=== PATIENT | female | born 1935 | race Caucasian/White ===

== ENCOUNTER 2017-09-02 16:53 | Observation (INO) ==
--- NOTE | 2017-09-02 16:56 | Emergency Department Note ---
Disposition Clinical Impression: UTI (urinary tract infection), Sepsis, Fall, Dizziness Disposition: Admitted As Inpatient Condition: Fair General Adult HPI - General Chief complaint: ED Fall Stated complaint: fall Time Seen by Provider: 09/02/17 16:55 - Related Data Home Medications Medication Instructions Recorded Confirmed Aspirin 81 mg PO DAILY 03/26/16 03/26/16 Labetalol HCl 200 mg PO BID 03/26/16 03/26/16 Lisinopril [Zestril] 10 mg PO BID 03/26/16 03/26/16 Oxybutynin [Ditropan] 5 mg PO DAILY 03/26/16 03/26/16 Ranitidine HCl [Heartburn Relief] 150 mg PO BIDWM 03/26/16 03/26/16 Previous Rx's Medication Instructions Recorded Acetaminophen [Tylenol] 650 mg PO Q6HR PRN #0 tablet 03/30/16 Ciprofloxacin [Cipro] 500 mg PO BID #3 tablet 03/30/16 OxyCODONE Immed Rel [Roxicodone 5 5 - 10 mg PO Q6HR PRN #40 tablet 03/30/16 MG] Temazepam [Restoril] 15 mg PO HS PRN #15 capsule 03/30/16 Allergies Allergy/AdvReac Type Severity Reaction Status Date / Time No Known Allergies Allergy Verified 03/26/16 17:42 Past Medical History - Past Medical History Medical history: Reports: CVA, diabetes, GERD, hyperlipidemia, hypertension Surgical history: Reports: appendectomy, cholecystectomy, hysterectomy Psychiatric history: Reports: no psych history - Social History Smoking Status: Former smoker Smokeless Tobacco Status: No Alcohol use: Reports: rarely Drug use: Reports: none Course Vital Signs Temperature 98.5 F 09/02/17 16:54 Pulse Rate 115 09/02/17 16:54 Respiratory Rate 18 09/02/17 16:54 Blood Pressure 172/108 09/02/17 16:54 O2 Sat by Pulse Oximetry 93 09/02/17 16:54 Temperature 98.5 F 09/02/17 16:54 Pulse Rate 101 09/02/17 21:28 Respiratory Rate 15 09/02/17 21:28 Blood Pressure 156/80 09/02/17 21:28 O2 Sat by Pulse Oximetry 96 09/02/17 21:28 Oxygen Delivery Oxygen Delivery Room Air Medical Decision Making - Lab Data Result diagrams: 09/02/17 18:01 10/14/17 18:57 Lab Results 09/02/17 09/02/17 09/02/17 Range/Units 18:01 18:01 18:01 WBC 19.0 H (4.3-11.1) K/mcL RBC 5.02 H (3.82-4.97) M/mcL Hgb 14.9 (11.5-15.4) g/dL Hct 45.2 H (35.3-44.9) % MCV 90.0 (83.0-100.0) fL MCH 29.7 (28.0-33.3) pg MCHC 33.0 (31.6-35.5) g/dL RDW 12.8 (11.5-14.5) % Plt Count 285 (140-400) K/mcL MPV 9.9 (9.4-12.4) fL Immature Gran % 0.4 (0-4) % Seg Neutrophils % 85.4 % Lymphocytes % 8.9 % Monocytes % 4.6 % Eosinophils % 0.3 % Basophils % 0.4 % Neutrophils # 16.3 H (1.6-8.9) K/mcL Lymphocytes # 1.7 (0.6-4.6) K/mcL Monocytes # 0.9 (0.0-1.3) K/mcL Eosinophils # 0.1 (0.0-0.6) K/mcL Basophils # 0.1 (0.0-0.2) K/mcL PT 11.6 (9.4-12.1) Seconds INR 1.1 Sodium (136-145) mEq/L Potassium (3.5-4.5) mEq/L Chloride (98-109) mEq/L Carbon Dioxide (19-29) mEq/L BUN (7-20) mg/dL Creatinine (0.57-1.11) mg/dL Est GFR ( Amer) (> 60) Est GFR (Non-Af Amer) (> 60) BUN/Creatinine Ratio (6-26) Glucose (70-99) mg/dL Calculated Osmolality (280-300) Calcium (8.6-10.8) mg/dL Total Bilirubin (0.2-1.2) mg/dL AST (5-34) Units/L ALT (0-55) Units/L Alkaline Phosphatase (38-126) Units/L Creatine Kinase (29-168) Units/L Troponin I (0-0.03) ng/mL Serum Total Protein (6.0-8.3) g/dL Albumin (3.5-5.0) g/dL Globulin (2.4-3.5) g/dL Albumin/Globulin Ratio (1.1-2.2) Urine Color (Yellow) Urine Clarity (Clear) Urine pH (5.0-8.0) pH Units Ur Specific [place] (1.010-1.025) Urine Protein (Neg-Trace) mg/dL Urine Glucose (UA) (Normal) mg/dL Urine Ketones (Negative) mg/dL Urine Blood (Negative) Urine Nitrite (Negative) Urine Bilirubin (Negative) Urine Urobilinogen (Normal) mg/dL Ur Leukocyte Esterase (Negative) Urine Microscopic RBC (0-3) per hpf Urine Microscopic WBC (0-3) per hpf Ur Squamous Epith Cells (None-Few) per lpf Urine Bacteria (None-Few) per hpf Hyaline Casts (None-Few) per lpf Ur Culture Indicated? (NO) Specimen Rejected Hemolyzed 09/02/17 09/02/17 09/02/17 Range/Units 18:57 18:57 19:30 WBC (4.3-11.1) K/mcL RBC (3.82-4.97) M/mcL Hgb (11.5-15.4) g/dL Hct (35.3-44.9) % MCV (83.0-100.0) fL MCH (28.0-33.3) pg MCHC (31.6-35.5) g/dL RDW (11.5-14.5) % Plt Count (140-400) K/mcL MPV (9.4-12.4) fL Immature Gran % (0-4) % Seg Neutrophils % % Lymphocytes % % Monocytes % % Eosinophils % % Basophils % % Neutrophils # (1.6-8.9) K/mcL Lymphocytes # (0.6-4.6) K/mcL Monocytes # (0.0-1.3) K/mcL Eosinophils # (0.0-0.6) K/mcL Basophils # (0.0-0.2) K/mcL PT (9.4-12.1) Seconds INR Sodium 142 (136-145) mEq/L Potassium 3.4 L (3.5-4.5) mEq/L Chloride 107 (98-109) mEq/L Carbon Dioxide 26 (19-29) mEq/L BUN 11 (7-20) mg/dL Creatinine 0.84 (0.57-1.11) mg/dL Est GFR ( Amer) > 60 (> 60) Est GFR (Non-Af Amer) > 60 (> 60) BUN/Creatinine Ratio 13 (6-26) Glucose 205 H (70-99) mg/dL Calculated Osmolality 299 (280-300) Calcium 8.7 (8.6-10.8) mg/dL Total Bilirubin 0.3 (0.2-1.2) mg/dL AST 20 (5-34) Units/L ALT 12 (0-55) Units/L Alkaline Phosphatase 86 (38-126) Units/L Creatine Kinase 288 H (29-168) Units/L Troponin I 0.01 (0-0.03) ng/mL Serum Total Protein 6.4 (6.0-8.3) g/dL Albumin 3.2 L (3.5-5.0) g/dL Globulin 3.2 (2.4-3.5) g/dL Albumin/Globulin Ratio 1.0 L (1.1-2.2) Urine Color Yellow (Yellow) Urine Clarity Cloudy A (Clear) Urine pH 6.0 (5.0-8.0) pH Units Ur Specific [place] 1.018 (1.010-1.025) Urine Protein Trace (Neg-Trace) mg/dL Urine Glucose (UA) Normal (Normal) mg/dL Urine Ketones 15 H (Negative) mg/dL Urine Blood Trace H (Negative) Urine Nitrite Positive A (Negative) Urine Bilirubin Negative (Negative) Urine Urobilinogen Normal (Normal) mg/dL Ur Leukocyte Esterase Negative (Negative) Urine Microscopic RBC 0-3 (0-3) per hpf Urine Microscopic WBC 5-15 H (0-3) per hpf Ur Squamous Epith Cells Many H (None-Few) per lpf Urine Bacteria Many H (None-Few) per hpf Hyaline Casts None Seen (None-Few) per lpf Ur Culture Indicated? YES A (NO) Specimen Rejected Attestation Statement - Attestation Attestation: I examined this patient and my medical decision-making was reviewed with the Resident Physician. I agree with the documented findings, disposition and treatment plan as described except to the extent set forth below. [id number] time provided Patient presents by EMS from home complaining of intermittent dizziness that is gradually worsening. This is causing her to be near syncopal and fall. She is alert and lucid at the time of presentation. Patient seen in conjunction with the resident physician Dr. Virgen 19:51: She has a leukocytosis with a neutrophilia. She was initially tachycardic. She has a urinary tract infection. She meets criteria for sepsis. We will add on cultures and a lactic acid. Empiric antibiotics initiated. Patient is normotensive
[2017-09-02] MEDS ORDERED: 0.9 % Sodium Chloride 1,000 ML IVC ONE (17:01)
--- NOTE | 2017-09-02 17:29 | Emergency Department Note ---
Disposition Clinical Impression: Dizziness UTI (urinary tract infection) Qualifiers: Urinary tract infection type: acute cystitis Hematuria presence: with hematuria Qualified Code(s): N30.01 - Acute cystitis with hematuria Sepsis Qualifiers: Sepsis type: sepsis due to unspecified organism Qualified Code(s): A41.9 - Sepsis, unspecified organism Fall Qualifiers: Encounter type: initial encounter Qualified Code(s): W19.XXXA - Unspecified fall, initial encounter Disposition: Admitted As Inpatient Condition: Fair Time of Disposition: 20:00 General Adult HPI - General Chief complaint: ED Fall Stated complaint: fall Time Seen by Provider: 09/02/17 16:55 Source: patient, EMS Limitations: no limitations Nursing Notes Reviewed: Yes Vital Signs Reviewed: Yes - History of Present Illness HPI Narrative: 81-year-old female who presents to the emergency department via EMS after being found down at home for over 15 hours. Patient states that she has been having this chronic dizziness. She states that she fell down at home on her right elbow. She denies hitting her head. Patient does have dementia. Patient denies any loss of consciousness. Pain Scale: 5 - Related Data Home Medications Medication Instructions Recorded Confirmed Aspirin 81 mg PO DAILY 03/26/16 03/26/16 Labetalol HCl 200 mg PO BID 03/26/16 03/26/16 Lisinopril [Zestril] 10 mg PO BID 03/26/16 03/26/16 Oxybutynin [Ditropan] 5 mg PO DAILY 03/26/16 03/26/16 Ranitidine HCl [Heartburn Relief] 150 mg PO BIDWM 03/26/16 03/26/16 Previous Rx's Medication Instructions Recorded Acetaminophen [Tylenol] 650 mg PO Q6HR PRN #0 tablet 03/30/16 Ciprofloxacin [Cipro] 500 mg PO BID #3 tablet 03/30/16 OxyCODONE Immed Rel [Roxicodone 5 5 - 10 mg PO Q6HR PRN #40 tablet 03/30/16 MG] Temazepam [Restoril] 15 mg PO HS PRN #15 capsule 03/30/16 Allergies Allergy/AdvReac Type Severity Reaction Status Date / Time No Known Allergies Allergy Verified 03/26/16 17:42 All systems ED: reviewed and negative except as stated. Review of Systems: As Per HPI Constitutional: Denies: fever, chills Eyes: Denies: eye pain, eye discharge ENT ED: Denies: ear pain, throat pain Cardiovascular: Denies: chest pain, palpitations Respiratory: Denies: cough, dyspnea Gastrointestinal: Denies: abdominal pain, nausea, vomiting Genitourinary: Denies: urgency, dysuria, frequency, hematuria Musculoskeletal: Reports: other (Right elbow pain). Denies: back pain, neck pain Integumentary: Denies: rash Neurological: Denies: headache, weakness, numbness Hematological/Lymphatic: Denies: easy bleeding Past Medical History - Past Medical History Medical history: Reports: CVA, diabetes, GERD, hyperlipidemia, hypertension Surgical history: Reports: appendectomy, cholecystectomy, hysterectomy Psychiatric history: Reports: no psych history - Social History Smoking Status: Former smoker Smokeless Tobacco Status: No Alcohol use: Reports: rarely Drug use: Reports: none Physical Exam - General Limitations: no limitations General appearance: alert, in no apparent distress, other (Elderly female who appears to be slightly demented but in no acute distress.) - Head Head exam: atraumatic - Eye Eye exam: Present: other (Left eye appears abnormal and this is nothing new) - ENT ENT exam: normal oropharynx, mucous membranes moist - Neck Neck exam: Present: trachea midline. Absent: tenderness, meningismus - Chest Chest inspection: Present: normal inspection, symmetric chest wall rise - Respiratory Respiratory exam: Present: normal lung sounds bilaterally. Absent: respiratory distress - Cardiovascular Cardiovascular exam: Present: normal rhythm, tachycardia, normal heart sounds - Abdominal Exam Abdominal exam: Present: soft, Non-Tender. Absent: distention, guarding, rebound, rigidity - Extremities Exam Extremities exam: Present: normal capillary refill. Absent: calf tenderness - Back Exam Back exam: Present: full ROM. Absent: tenderness - Neurological Exam Neurological exam: Present: alert - Psychiatric Psychiatric exam: Present: normal affect, normal mood - Skin Skin exam: Present: warm, dry, intact, normal color Course Course Narrative: 81-year-old female presents to the emergency department after being down on the ground for 15 hours after having a fall. Patient states that she is dizzy. Patient states that she has been bile in this dizziness for quite some time. Patient was brought in via EMS. Patient states that she is no longer able to ambulate. Patient denies any other symptoms besides pain in her right elbow. We will obtain a CT scan of her head and neck as this patient has dementia and is not a reliable source and reporting neurologic symptoms with her dizziness. We will obtain an x-ray of her right elbow as well as in x-ray AP of her pelvis. Obtain urinalysis, EKG, BMP, troponin, creatinine kinase. - Reevaluation(s) Reevaluation #1: Patient was tachycardic upon arrival to the emergency department. She has a leukocytosis of 19.0. She meets SIRS criteria. She has a nitrite-positive urine with hematuria. This patient meets criteria for sepsis. We will obtain blood cultures and lactic acid. I will give her a gram of Rocephin for urinary tract infection. The patient's CT of the head and neck are negative. Her creatinine kinase is only mildly elevated. We will admit this patient with a urinary tract infection with sepsis. We will provide this patient with a gram of Rocephin to treat her urinary tract infection. Her urine is pending culture. Chest X-Ray 09/02/17 17:01 IMPRESSION: No acute abnormality detected. D/ / Flaco Clement MD / Flaco Clement MD Interpreting Provider: Flaco Clement MD Elbow X-Ray 09/02/17 17:03 IMPRESSION: No acute abnormality detected. D/ / Flaco Clement MD / Flaco Clement MD Interpreting Provider: Flaco Clement MD Cervical Spine CT 09/02/17 17:10 IMPRESSION: No acute abnormality of the cervical spine. D/ / Nicholas Ocasio MD / Nicholas Ocasio MD Interpreting Provider: Nicholas Ocasio MD Head CT 09/02/17 17:10 IMPRESSION: Stable exam without acute hemorrhage Extensive small-vessel ischemic change bilaterally with multiple old infarcts. D/ / Rome Albarran / Rome Albarran Interpreting Provider: Rome Albarran Pelvis X-Ray 09/02/17 17:12 IMPRESSION: No acute abnormality detected. D/ / Flaco Clement MD / Flaco Clement MD Interpreting Provider: Flaco Clement MD Time: 19:57 Vital Signs Temperature 98.5 F 09/02/17 16:54 Pulse Rate 115 09/02/17 16:54 Respiratory Rate 18 09/02/17 16:54 Blood Pressure 172/108 09/02/17 16:54 O2 Sat by Pulse Oximetry 93 09/02/17 16:54 Temperature 98.5 F 09/02/17 16:54 Pulse Rate 108 09/02/17 20:08 Respiratory Rate 20 09/02/17 20:08 Blood Pressure 168/95 09/02/17 20:08 O2 Sat by Pulse Oximetry 93 09/02/17 20:08 Oxygen Delivery Oxygen Delivery Room Air Medical Decision Making - Medical Records Medical records reviewed: Yes I reviewed the patient's medical records. - Lab Data Lab results reviewed: Yes I reviewed the patient's lab results. Result diagrams: 09/02/17 18:01 09/02/17 18:57 Lab Results 09/02/17 09/02/17 09/02/17 Range/Units 18:01 18:01 18:01 WBC 19.0 H (4.3-11.1) K/mcL RBC 5.02 H (3.82-4.97) M/mcL Hgb 14.9 (11.5-15.4) g/dL Hct 45.2 H (35.3-44.9) % MCV 90.0 (83.0-100.0) fL MCH 29.7 (28.0-33.3) pg MCHC 33.0 (31.6-35.5) g/dL RDW 12.8 (11.5-14.5) % Plt Count 285 (140-400) K/mcL MPV 9.9 (9.4-12.4) fL Immature Gran % 0.4 (0-4) % Seg Neutrophils % 85.4 % Lymphocytes % 8.9 % Monocytes % 4.6 % Eosinophils % 0.3 % Basophils % 0.4 % Neutrophils # 16.3 H (1.6-8.9) K/mcL Lymphocytes # 1.7 (0.6-4.6) K/mcL Monocytes # 0.9 (0.0-1.3) K/mcL Eosinophils # 0.1 (0.0-0.6) K/mcL Basophils # 0.1 (0.0-0.2) K/mcL PT 11.6 (9.4-12.1) Seconds INR 1.1 Sodium (136-145) mEq/L Potassium (3.5-4.5) mEq/L Chloride (98-109) mEq/L Carbon Dioxide (19-29) mEq/L BUN (7-20) mg/dL Creatinine (0.57-1.11) mg/dL Est GFR ( Amer) (> 60) Est GFR (Non-Af Amer) (> 60) BUN/Creatinine Ratio (6-26) Glucose (70-99) mg/dL Calculated Osmolality (280-300) Calcium (8.6-10.8) mg/dL Total Bilirubin (0.2-1.2) mg/dL AST (5-34) Units/L ALT (0-55) Units/L Alkaline Phosphatase (38-126) Units/L Creatine Kinase (29-168) Units/L Troponin I (0-0.03) ng/mL Serum Total Protein (6.0-8.3) g/dL Albumin (3.5-5.0) g/dL Globulin (2.4-3.5) g/dL Albumin/Globulin Ratio (1.1-2.2) Urine Color (Yellow) Urine Clarity (Clear) Urine pH (5.0-8.0) pH Units Ur Specific [place] (1.010-1.025) Urine Protein (Neg-Trace) mg/dL Urine Glucose (UA) (Normal) mg/dL Urine Ketones (Negative) mg/dL Urine Blood (Negative) Urine Nitrite (Negative) Urine Bilirubin (Negative) Urine Urobilinogen (Normal) mg/dL Ur Leukocyte Esterase (Negative) Urine Microscopic RBC (0-3) per hpf Urine Microscopic WBC (0-3) per hpf Ur Squamous Epith Cells (None-Few) per lpf Urine Bacteria (None-Few) per hpf Hyaline Casts (None-Few) per lpf Ur Culture Indicated? (NO) Specimen Rejected Hemolyzed 09/02/17 09/02/17 09/02/17 Range/Units 18:57 18:57 19:30 WBC (4.3-11.1) K/mcL RBC (3.82-4.97) M/mcL Hgb (11.5-15.4) g/dL Hct (35.3-44.9) % MCV (83.0-100.0) fL MCH (28.0-33.3) pg MCHC (31.6-35.5) g/dL RDW (11.5-14.5) % Plt Count (140-400) K/mcL MPV (9.4-12.4) fL Immature Gran % (0-4) % Seg Neutrophils % % Lymphocytes % % Monocytes % % Eosinophils % % Basophils % % Neutrophils # (1.6-8.9) K/mcL Lymphocytes # (0.6-4.6) K/mcL Monocytes # (0.0-1.3) K/mcL Eosinophils # (0.0-0.6) K/mcL Basophils # (0.0-0.2) K/mcL PT (9.4-12.1) Seconds INR Sodium 142 (136-145) mEq/L Potassium 3.4 L (3.5-4.5) mEq/L Chloride 107 (98-109) mEq/L Carbon Dioxide 26 (19-29) mEq/L BUN 11 (7-20) mg/dL Creatinine 0.84 (0.57-1.11) mg/dL Est GFR ( Amer) > 60 (> 60) Est GFR (Non-Af Amer) > 60 (> 60) BUN/Creatinine Ratio 13 (6-26) Glucose 205 H (70-99) mg/dL Calculated Osmolality 299 (280-300) Calcium 8.7 (8.6-10.8) mg/dL Total Bilirubin 0.3 (0.2-1.2) mg/dL AST 20 (5-34) Units/L ALT 12 (0-55) Units/L Alkaline Phosphatase 86 (38-126) Units/L Creatine Kinase 288 H (29-168) Units/L Troponin I 0.01 (0-0.03) ng/mL Serum Total Protein 6.4 (6.0-8.3) g/dL Albumin 3.2 L (3.5-5.0) g/dL Globulin 3.2 (2.4-3.5) g/dL Albumin/Globulin Ratio 1.0 L (1.1-2.2) Urine Color Yellow (Yellow) Urine Clarity Cloudy A (Clear) Urine pH 6.0 (5.0-8.0) pH Units Ur Specific [place] 1.018 (1.010-1.025) Urine Protein Trace (Neg-Trace) mg/dL Urine Glucose (UA) Normal (Normal) mg/dL Urine Ketones 15 H (Negative) mg/dL Urine Blood Trace H (Negative) Urine Nitrite Positive A (Negative) Urine Bilirubin Negative (Negative) Urine Urobilinogen Normal (Normal) mg/dL Ur Leukocyte Esterase Negative (Negative) Urine Microscopic RBC 0-3 (0-3) per hpf Urine Microscopic WBC 5-15 H (0-3) per hpf Ur Squamous Epith Cells Many H (None-Few) per lpf Urine Bacteria Many H (None-Few) per hpf Hyaline Casts None Seen (None-Few) per lpf Ur Culture Indicated? YES A (NO) Specimen Rejected - Radiology Data Radiology results reviewed: Yes I reviewed the patient's radiology results. - EKG Data EKG #1 EKG attestation: Yes I reviewed and interpreted this EKG. EKG results narrative: 16:57 Ventricular rate 150 bpm, LA interval 136, QRS duration 67 ms, QT 345 mg size, QTC 413 ms, left axis deviation. Sinus tachycardia with a ventricular rate of 150 bpm. No ischemic echocardiogram changes noted on this EKG.
[2017-09-02 18:13] LABS: Basophils # 0.1 K/mcL (0.0-0.2); Basophils % 0.4 %; Eosinophils # 0.1 K/mcL (0.0-0.6); Eosinophils % 0.3 %; Hematocrit 45.2 % (35.3-44.9); Hemoglobin 14.9 g/dL (11.5-15.4); Immature Granulocytes % 0.4 % (0-4); Lymphocytes # 1.7 K/mcL (0.6-4.6); Lymphocytes % 8.9 %; Mean Corpuscular Hemoglobin 29.7 pg (28.0-33.3); Mean Platelet Volume 9.9 fL (9.4-12.4); Monocytes # 0.9 K/mcL (0.0-1.3); Monocytes % 4.6 %; Neutrophils # 16.3 K/mcL (1.6-8.9); Platelet Count 285 K/mcL (140-400); Red Blood Count 5.02 M/mcL (3.82-4.97); Red Cell Distribution Width 12.8 % (11.5-14.5); Segmented Neutrophils % 85.4 %
[2017-09-02 18:20] LABS: INR 1.1; Prothrombin Time 11.6 Seconds (9.4-12.1)
[2017-09-02 19:27] LABS: Alanine Aminotransferase 12 Units/L (0-55); Albumin 3.2 g/dL (3.5-5.0); Alkaline Phosphatase 86 Units/L (38-126); Aspartate Amino Transferase 20 Units/L (5-34); BUN/Creatinine Ratio 13 (6-26); Bilirubin,Total 0.3 mg/dL (0.2-1.2); Blood Urea Nitrogen 11 mg/dL (7-20); Calcium 8.7 mg/dL (8.6-10.8); Carbon Dioxide 26 mEq/L (19-29); Chloride 107 mEq/L (98-109); Creatine Kinase 288 Units/L (29-168); Globulin 3.2 g/dL (2.4-3.5); Glucose 205 mg/dL (70-99); Osmolality,Calculated 299 (280-300); Potassium 3.4 mEq/L (3.5-4.5); Sodium 142 mEq/L (136-145); Total Protein 6.4 g/dL (6.0-8.3); eGFR For African Americans > 60 (> 60); eGFR For Non-African Americans > 60 (> 60)
[2017-09-02 19:39] LABS: Bilirubin,Urine Negative (Negative); Blood,Urine Trace (Negative); Clarity,Urine Cloudy (Clear); Color,Urine Yellow (Yellow); Glucose,Urine (UA) Normal (Normal); Ketones,Urine 15 mg/dL (Negative); Leukocyte Esterase,Urine Negative (Negative); Nitrite,Urine Positive (Negative); Protein,Urine Trace mg/dL (Neg-Trace); Specific Gravity,Urine 1.018 (1.010-1.025); Urobilinogen,Urine Normal (Normal)
[2017-09-02 19:42] LABS: Bacteria,Urine Many per hpf (None-Few); Hyaline Casts,Urine None Seen per lpf (None-Few); RBC,Urine 0-3 per hpf (0-3); Squamous Epithelial Cell,Urine Many per lpf (None-Few)
[2017-09-02] MEDS ORDERED: Ondansetron 4 MG/2 ML VIAL IVP PRN (20:22)
[2017-09-02] MEDS ORDERED: *HR* Morphine 2 MG/ML SYRINGE IVP PRN (20:22)
[2017-09-02] MEDS ORDERED: Naloxone 0.4 MG/ML INJ IVP PRN (20:22)
[2017-09-02] MEDS ORDERED: NON-FORMULARY MEDICATION 1 EACH EACH (Ranitidine Hcl [Heartburn Relief] 150 MG) PO SCH (20:30)
--- NOTE | 2017-09-02 23:41 | Internal Med History&Physical ---
Date of Encounter: 09/02/17 Time of Encounter: 22:00 Assessment and Plan (1) Sepsis Current visit: Yes Status: Acute Sepsis, present on admission - secondary to UTI, likely gram-negative bacilli - likely causing fall and generalized weakness Continue IV fluids, empiric IV Rocephin Cultures - pending EKG - sinus tachycardia with no acute ST-T changes CT head - no acute hemorrhage, extensive chronic small vessel ischemic change with bilateral old infarcts CT C-spine - no acute fracture Pelvis x-ray and elbow x-ray - no acute fracture Chest x-ray - no acute abnormality Troponin - negative Cardiac telemetry, labs in a.m., monitor closely Qualifiers: Sepsis type: sepsis due to unspecified organism Qualified Code(s): A41.9 - Sepsis, unspecified organism (2) UTI (urinary tract infection) Current visit: Yes Status: Acute Continue plan as above Qualifiers: Urinary tract infection type: acute cystitis Hematuria presence: without hematuria Qualified Code(s): N30.01 - Acute cystitis with hematuria (3) Fall Current visit: Yes Status: Acute Fall with generalized weakness - likely secondary to urinary tract infection Possible vertigo, and Antivert as needed, continue aspirin and statin CT head and C-spine - no acute abnormality Echocardiogram - pending Qualifiers: Encounter type: initial encounter Qualified Code(s): W19.XXXA - Unspecified fall, initial encounter (4) Hypertension Current visit: Yes Status: Chronic Essential hypertension, controlled, monitor Continue home meds when confirmed Qualifiers: Hypertension type: essential hypertension Qualified Code(s): I10 - Essential (primary) hypertension (5) CVA (cerebral vascular accident) Current visit: Yes Status: Chronic History of CVA - with no obvious focal neurological deficits Continue aspirin, statin Qualifiers: CVA mechanism: unspecified Qualified Code(s): I63.9 - Cerebral infarction, unspecified (6) DVT prophylaxis Current visit: No Status: Acute Continue heparin subcutaneous Internal Medicine - H&P: HPI Chief complaint: Fall Admitted From: Emergency Dept Plans for Post Hospital Care: Home History of present illness: Ms. Peña is a 81 year old female with past medical history of CVA, diabetes, GERD, hypertension and hyperlipidemia. Patient presents to the ED with complaint of generalized weakness and fall. Examined in the room. Patient is awake and alert. Not in any distress. Able to provide history, although she seems to have dementia. No family members at bedside. Patient states that at around 2 AM last night or early this morning she tried to go to the bathroom and had a fall. She complains of chronic dizziness which caused her to fall. She denies loss of consciousness and denies hitting her head. Patient states she was awake throughout the day. She tried to crawl on the floor to get help. Patient is apparently on the ground for almost 15 hours. She states she feels weak and has difficulty ambulating. Patient denies chest pain or shortness of breath. Denies abdominal pain or vomiting or diarrhea or fever. No other associated symptoms. No other acute complaints. Initial workup in the ED is significant for elevated white count and bacteria seen in urine. EKG shows sinus tachycardia with no acute ST-T changes. Chest x -ray does not show any acute process. X-ray of the pelvis and the elbow is negative for fracture. CT of the C-spine is negative for any acute abnormality. CT of the head shows a stable exam with no acute hemorrhage, there is extensive small vessel ischemic change with multiple bilateral old infarcts. Patient is being admitted for sepsis secondary to UTI. She will need IV fluids and IV antibiotics. She will also be continued on aspirin and statin. Patient has been explained about her condition and plan of care in detail. She understood and agreed. No unanswered questions. CODE STATUS full code. Past Med Surg Social Fam HX - Past Medical History Medical history: CVA, diabetes, GERD, hyperlipidemia, hypertension Psychiatric history: no psych history - Past Surgical History Surgical History: appendectomy, cholecystectomy, hysterectomy - Social History Smoking Status: Former smoker Smokeless Tobacco Status: No Alcohol use: rarely Drug use: none - Family History Mother Family Member Ethnicity: Non- Living Status: Hx Family Cardiac Disorders: Yes ("Several heart attacks") Hx Family Neuromuscular Disorders: Yes Hx Family Neurologic Disorders: Yes ("Several Strokes") Father Living Status: Age at : 53 Cause of : Hemorrhage Hx Family Cardiac Disorders: Yes Internal Medicine - H&P: Meds Aspirin 81 mg PO DAILY 03/26/16 [History] Labetalol HCl 200 mg PO BID 03/26/16 [History] Lisinopril [Zestril] 10 mg PO BID 03/26/16 [History] Oxybutynin [Ditropan] 5 mg PO DAILY 03/26/16 [History] Ranitidine HCl [Heartburn Relief] 150 mg PO BIDWM 03/26/16 [History] Acetaminophen [Tylenol] 650 mg PO Q6HR PRN #0 tablet 03/30/16 [Rx] Ciprofloxacin [Cipro] 500 mg PO BID #3 tablet 03/30/16 [Rx] OxyCODONE Immed Rel [Roxicodone 5 MG] 5 - 10 mg PO Q6HR PRN #40 tablet 03/30/16 [Rx] Temazepam [Restoril] 15 mg PO HS PRN #15 capsule 03/30/16 [Rx] 3 Allergy/AdvReac Type Severity Reaction Status Date / Time No Known Allergies Allergy Verified 03/26/16 17:42 All Systems PM: A 10-system review of systems was performed and is negative for pertinent findings except as documented above in the HPI. - Constitutional Constitutional: fatigue, falls, weakness, no fever(s) - EENT Eyes: no blurry vision - Cardiovascular Cardiovascular ROS IM: no chest pain, no claudication, no diaphoresis, no dyspnea, no dyspnea on exertion, no lightheadedness, no orthopnea, no palpitations, no syncope - Respiratory Respiratory: no cough, no dyspnea, no hemoptysis, no dyspnea on exertion, no wheezing, no chest congestion - Gastrointestinal Gastrointestinal: no abdominal pain, no bloating, no cramping, no diarrhea, no hematemesis, no hematochezia, no nausea, no vomiting - Genitourinary Genitourinary: no dysuria - Musculoskeletal Musculoskeletal ROS IM: no back pain - Neurological Neurological ROS: dizziness, frequent falls, no confusion, no convulsions, no headache(s), no loss of vision, no numbness, no tingling - Constitutional Vitals: Temp Pulse Resp BP Pulse Ox 97.8 F 93 16 155/80 97 09/02/17 23:12 09/02/17 23:12 09/02/17 23:12 09/02/17 23:12 09/02/17 23:12 General appearance: Present: A&O X 2, pleasant, no acute distress, answers questions appropriately Exam: Generalized weakness, appears frail, able to answer questions appropriately and able to follow verbal commands. - Head Head exam: Present: atraumatic - Eye Eye exam: Present: EOMI - ENT ENT exam: Present: mucous membranes dry - Respiratory Respiratory exam: Present: CTAB. Absent: rales, rhonchi, wheezes, tachypnea - Cardiovascular Cardiovascular exam: Present: RRR, +S1, +S2 - GI/Abdominal GI/Abdominal exam: Present: soft. Absent: distended, firm, guarding, tenderness - Extremities Exam Extremities exam: Present: radial pulses palpable and symmetrical. Absent: calf tenderness, cyanotic, pedal edema - Neurological Exam Neurological exam: Present: alert, CN II-XII intact, no focal deficits. Absent : facial droop, speech deficit Additional comments: Patient is able to verbalize well and follows commands well. Able to move all extremities, no focal neurological deficits. She is oriented to place and person but is slightly confused with time. Internal Med - H&P Results - Labs CBC & Chem 7: 09/02/17 18:01 09/02/17 18:57 Labs: Cardiac Enzymes 09/02/17 Range/Units 21:46 Troponin I 0.02 (0-0.03) ng/mL
[2017-09-03] MEDS: 0.9 % Sodium Chloride 1,000 ML IVC SCH ×3 (00:51→13:09)
[2017-09-03] MEDS: Aspirin 81 MG TAB.CHEW PO SCH ×2 (00:52→08:54)
[2017-09-03] MEDS: *HR* Heparin 5,000 UNIT/ML VIAL SQ SCH ×3 (00:52→17:15)
[2017-09-03 02:00] LABS: Basophils # 0.1 K/mcL (0.0-0.2); Basophils % 0.3 %; Eosinophils # 0.5 K/mcL (0.0-0.6); Eosinophils % 3.1 %; Hematocrit 35.7 % (35.3-44.9); Immature Granulocytes % 0.6 % (0-4); Lymphocytes # 2.7 K/mcL (0.6-4.6); Lymphocytes % 18.3 %; Mean Corpuscular HGB Conc 33.6 g/dL (31.6-35.5); Mean Corpuscular Hemoglobin 30.1 pg (28.0-33.3); Mean Corpuscular Volume 89.5 fL (83.0-100.0); Mean Platelet Volume 9.3 fL (9.4-12.4); Monocytes % 6.5 %; Neutrophils # 10.3 K/mcL (1.6-8.9); Platelet Count 301 K/mcL (140-400); Red Blood Count 3.99 M/mcL (3.82-4.97); Red Cell Distribution Width 12.6 % (11.5-14.5); Segmented Neutrophils % 71.2 %
[2017-09-03 02:15] LABS: BUN/Creatinine Ratio 13 (6-26); Blood Urea Nitrogen 10 mg/dL (7-20); Calcium 8.2 mg/dL (8.6-10.8); Carbon Dioxide 26 mEq/L (19-29); Chloride 108 mEq/L (98-109); Cholesterol 158 mg/dL (< 200); Glucose 179 mg/dL (70-99); HDL Cholesterol 40 mg/dL (40-59); LDL Cholesterol,Calculated 84 mg/dL (0-99); Magnesium 1.6 mg/dL (1.6-2.6); Osmolality,Calculated 300 (280-300); Potassium 3.1 mEq/L (3.5-4.5); Sodium 143 mEq/L (136-145); Triglycerides 168 mg/dL (< 150); eGFR For African Americans > 60 (> 60); eGFR For Non-African Americans > 60 (> 60)
[2017-09-03] MEDS ORDERED: Famotidine 20 MG/2 ML VIAL IVP SCH (06:00)
--- NOTE | 2017-09-03 12:31 | Electrocardiograph Report ---
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
--- NOTE | 2017-09-03 18:36 | Internal Med Progress Note ---
Date of Encounter: 09/03/17 Time of Encounter: 12:00 - Assessment and plan (1) UTI (urinary tract infection) Current Visit: Yes Status: Acute Assessment and plan: -Continue IV ceftriaxone Qualifiers: Urinary tract infection type: acute cystitis Hematuria presence: without hematuria Qualified Code(s): N30.01 - Acute cystitis with hematuria (2) Fall Current Visit: Yes Status: Acute Assessment and plan: -Physical therapy consulted for evaluation -TTE also pending Qualifiers: Encounter type: initial encounter Qualified Code(s): W19.XXXA - Unspecified fall, initial encounter (3) DVT prophylaxis Current Visit: No Status: Acute Assessment and plan: Subcutaneous heparin - Subjective Interval history: No acute events overnight - Constitutional Vitals: Temp Pulse Resp BP Pulse Ox 98.3 F 92 17 162/85 93 09/03/17 16:37 09/03/17 16:37 09/03/17 16:37 09/03/17 16:37 09/03/17 16:37 General appearance: Present: A&O X 2, pleasant, no acute distress, answers questions appropriately - Respiratory Respiratory exam: Present: CTAB. Absent: accessory muscle use, rales, rhonchi, wheezes - Cardiovascular Cardiovascular exam: Present: RRR, +S1, +S2. Absent: diastolic murmur, gallop, rubs, systolic murmur Internal Medicine: Result - Labs CBC & Chem 7: 09/03/17 01:50 09/03/17 01:50 Labs: Short CBC 09/03/17 Range/Units 01:50 WBC 14.5 H (4.3-11.1) K/mcL Hgb 12.0 D (11.5-15.4) g/dL Hct 35.7 (35.3-44.9) % Plt Count 301 (140-400) K/mcL Neutrophils # 10.3 H (1.6-8.9) K/mcL BMP 09/03/17 01:50 Sodium 143 Potassium 3.1 L Chloride 108 Carbon Dioxide 26 BUN 10 Creatinine 0.77 Glucose 179 H Calcium 8.2 L Cardiac Enzymes 09/02/17 09/03/17 09/03/17 Range/Units 21:46 01:50 08:58 Troponin I 0.02 0.02 0.01 (0-0.03) ng/mL - ABG Interpretation ABG results: PT/INR, D-dimer PT 11.6 Seconds (9.4-12.1) 09/02/17 18:01 Consult Discharge Plan - Plan Referrals: Amanda Headley MD [Primary Care Provider] -
[2017-09-03] MEDS ORDERED: D5% in Water 1,000 ML IVC PRN (20:55)
[2017-09-03] MEDS ORDERED: Dextrose Gel 15 GM PO PRN ×2 (20:55)
[2017-09-03] MEDS ORDERED: *HR* Dextrose 50 % in Water (Syg) 50 ML SYRINGE IVP PRN (20:55)
[2017-09-03] MEDS: Insulin LISPRO 300 UNITS/3 ML VIAL SQ SCH (22:17)
[2017-09-04] MEDS: 0.9 % Sodium Chloride 1,000 ML IVC SCH ×2 (01:51→08:57)
[2017-09-04] MEDS: Famotidine 20 MG/2 ML VIAL IVP SCH (05:47)
[2017-09-04] MEDS: *HR* Heparin 5,000 UNIT/ML VIAL SQ SCH ×2 (05:47→17:46)
[2017-09-04] MEDS: Insulin LISPRO 300 UNITS/3 ML VIAL SQ SCH ×4 (07:51→20:14)
[2017-09-04] MEDS: Aspirin 81 MG TAB.CHEW PO SCH (08:52)
[2017-09-04 10:26] LABS: Basophils # 0.1 K/mcL (0.0-0.2); Basophils % 0.6 %; Eosinophils # 0.5 K/mcL (0.0-0.6); Eosinophils % 4.5 %; Hematocrit 38.6 % (35.3-44.9); Hemoglobin 12.8 g/dL (11.5-15.4); Immature Granulocytes % 0.6 % (0-4); Lymphocytes # 2.6 K/mcL (0.6-4.6); Lymphocytes % 22.5 %; Mean Corpuscular HGB Conc 33.2 g/dL (31.6-35.5); Mean Corpuscular Hemoglobin 29.8 pg (28.0-33.3); Mean Platelet Volume 9.7 fL (9.4-12.4); Monocytes # 0.8 K/mcL (0.0-1.3); Monocytes % 6.5 %; Neutrophils # 7.6 K/mcL (1.6-8.9); Platelet Count 274 K/mcL (140-400); Red Blood Count 4.29 M/mcL (3.82-4.97); Red Cell Distribution Width 12.8 % (11.5-14.5); Segmented Neutrophils % 65.3 %
[2017-09-04 10:37] LABS: BUN/Creatinine Ratio 6 (6-26); Calcium 8.2 mg/dL (8.6-10.8); Carbon Dioxide 25 mEq/L (19-29); Chloride 108 mEq/L (98-109); Glucose 260 mg/dL (70-99); Osmolality,Calculated 302 (280-300); Sodium 143 mEq/L (136-145); eGFR For African Americans > 60 (> 60); eGFR For Non-African Americans > 60 (> 60)
[2017-09-04 10:57] LABS: Blood Urea Nitrogen 5 mg/dL (7-20)
[2017-09-04] MEDS: amLODIPine 5 MG TABLET PO SCH (13:36)
--- NOTE | 2017-09-04 20:16 | Internal Med Progress Note ---
Date of Encounter: 09/04/17 Time of Encounter: 11:00 - Assessment and plan (1) UTI (urinary tract infection) Current Visit: Yes Status: Acute Assessment and plan: -Continue IV ceftriaxone Qualifiers: Urinary tract infection type: acute cystitis Hematuria presence: without hematuria Qualified Code(s): N30.01 - Acute cystitis with hematuria (2) Fall Current Visit: Yes Status: Acute Assessment and plan: -Physical therapy consulted for evaluation -TTE also pending Qualifiers: Encounter type: initial encounter Qualified Code(s): W19.XXXA - Unspecified fall, initial encounter (3) DVT prophylaxis Current Visit: No Status: Acute Assessment and plan: Subcutaneous heparin - Subjective Interval history: No acute events overnight - Constitutional Vitals: Temp Pulse Resp BP Pulse Ox 98.9 F 102 12 157/78 97 09/04/17 18:52 09/04/17 18:52 09/04/17 18:52 09/04/17 18:52 09/04/17 18:52 General appearance: Present: A&O X 2, pleasant, no acute distress, answers questions appropriately - Respiratory Respiratory exam: Present: CTAB. Absent: accessory muscle use, rales, rhonchi, wheezes - Cardiovascular Cardiovascular exam: Present: RRR, +S1, +S2. Absent: diastolic murmur, gallop, rubs, systolic murmur Internal Medicine: Result - Labs CBC & Chem 7: 09/04/17 10:13 09/04/17 10:13 Labs: Short CBC 09/04/17 Range/Units 10:13 WBC 11.7 H (4.3-11.1) K/mcL Hgb 12.8 (11.5-15.4) g/dL Hct 38.6 (35.3-44.9) % Plt Count 274 (140-400) K/mcL Neutrophils # 7.6 (1.6-8.9) K/mcL BMP 09/04/17 10:13 Sodium 143 Potassium 3.0 L Chloride 108 Carbon Dioxide 25 BUN 5 L Creatinine 0.81 Glucose 260 H Calcium 8.2 L - ABG Interpretation ABG results: PT/INR, D-dimer PT 11.6 Seconds (9.4-12.1) 09/02/17 18:01 - Impressions Impressions Echocardiogram 09/03/17 01:39 Impressions: LVEF 65-70%. Normal left ventricular size and systolic function. There is evidence of mild diastolic dysfunction of the left ventricle. Normal right ventricular size and function. Mild mitral regurgitation. Mild pulmonic regurgitation. No pulmonary hypertension. Left Ventricular Wall Motion: Rest Echo Findings All wall segments showed normal motion. Findings: Study Quality * Technically adequate exam. ECG Findings * Normal sinus rhythm. Left Ventricle * Normal LV chamber size, wall thickness and function. * Mild left ventricular diastolic dysfunction. * LVEF 65-70%. Aorta * Normally sized aortic root. Aortic Valve * No aortic regurgitation. * Trileaflet aortic valve. * No aortic stenosis. Mitral Valve * Normal mitral valve structure. * No mitral stenosis. * Mild mitral regurgitation. Tricuspid Valve * Normal tricuspid valve structure. * Trace tricuspid regurgitation. * Estimated RA pressure is 3 mmHg. * Estimated RVSP is 26 mmHg. * No pulmonary hypertension. Pulmonic Valve * Pulmonic valve is not well visualized. * No pulmonic stenosis. * Mild pulmonic regurgitation. Pulmonary Artery * Pulmonary artery not well visualized. Right Ventricle * Normal right ventricular structure and function. Left Atrium * Normal left atrial size. Right Atrium * Normal right atrial size. Pericardium * There is no pericardial effusion present. Interatrial Septum * No evidence of PFO by color Doppler. IVC * Normal IVC dimensions and inspiratory collapse. Consult Discharge Plan - Plan Referrals: Amanda Headley MD [Primary Care Provider] -
[2017-09-05] MEDS: *HR* Heparin 5,000 UNIT/ML VIAL SQ SCH ×2 (05:54→17:09)
[2017-09-05] MEDS: Famotidine 20 MG/2 ML VIAL IVP SCH (05:55)
[2017-09-05] MEDS: Insulin LISPRO 300 UNITS/3 ML VIAL SQ SCH ×4 (08:04→22:40)
[2017-09-05] MEDS: amLODIPine 5 MG TABLET PO SCH (08:31)
[2017-09-05] MEDS: Aspirin 81 MG TAB.CHEW PO SCH (08:31)
[2017-09-05] MEDS: 0.9 % Sodium Chloride 1,000 ML IVC SCH ×2 (08:31→12:32)
[2017-09-05] MEDS: Piperacillin/Tazobactam 3.375 GM in D5% in Water (Mini-Bag+) 100 ML IVPB SCH ×2 (08:32→17:08)
[2017-09-05 13:00] LABS: Hematocrit 42.4 % (35.3-44.9); Hemoglobin 14.1 g/dL (11.5-15.4); Mean Corpuscular HGB Conc 33.3 g/dL (31.6-35.5); Mean Corpuscular Hemoglobin 29.6 pg (28.0-33.3); Mean Corpuscular Volume 89.1 fL (83.0-100.0); Mean Platelet Volume 9.8 fL (9.4-12.4); Red Blood Count 4.76 M/mcL (3.82-4.97); Red Cell Distribution Width 12.7 % (11.5-14.5)
[2017-09-05 13:15] LABS: Albumin 3.4 g/dL (3.5-5.0); Albumin/Globulin Ratio 0.9 (1.1-2.2); Bilirubin,Total 0.4 mg/dL (0.2-1.2); Calcium 9.1 mg/dL (8.6-10.8); Potassium 3.1 mEq/L (3.5-4.5); Total Protein 7.4 g/dL (6.0-8.3)
--- NOTE | 2017-09-05 16:47 | Internal Med Progress Note ---
Date of Encounter: 09/05/17 Time of Encounter: 16:45 - Assessment and plan (1) UTI (urinary tract infection) Current Visit: Yes Status: Acute Assessment and plan: initially treated with IV ceftriaxone. 09/02 urine cx with ESBL, Rocephin changed to Zosyn Qualifiers: Urinary tract infection type: acute cystitis Hematuria presence: without hematuria Qualified Code(s): N30.01 - Acute cystitis with hematuria (2) Fall Current Visit: Yes Status: Acute Assessment and plan: evaluated by PT who is recommending SNF. Qualifiers: Encounter type: initial encounter Qualified Code(s): W19.XXXA - Unspecified fall, initial encounter (3) CVA (cerebral vascular accident) Current Visit: Yes Status: Chronic Assessment and plan: per hx. Cont home ASA, plavix, statin Qualifiers: CVA mechanism: unspecified Qualified Code(s): I63.9 - Cerebral infarction, unspecified (4) Hypertension Current Visit: Yes Status: Chronic Assessment and plan: per hx. BP variable but acceptable. Continue home BP medication. Monitor BP and titrate PRN Qualifiers: Hypertension type: essential hypertension Qualified Code(s): I10 - Essential (primary) hypertension (5) Hypokalemia Current Visit: No Status: Acute Assessment and plan: K 3.1; replaced. Monitor repeat CMP (6) DVT prophylaxis Current Visit: No Status: Acute Assessment and plan: Subcutaneous heparin - Subjective Interval history: Seen and examined at bedside, patient is new to me. Information obtained from chart review and patient report. Sitting up in chair at bedside, says she feels fine today and is looking forward to going home. She does report frequency, no dusuria. - Constitutional Vitals: Temp Pulse Resp BP Pulse Ox 98.0 F 97 16 151/94 96 09/05/17 15:31 09/05/17 15:31 09/05/17 15:31 09/05/17 15:31 09/05/17 15:31 General appearance: Present: A&O X 2, pleasant, no acute distress, answers questions appropriately - Head Head exam: Present: atraumatic, normocephalic - Eye Eye exam: Present: PERRL, conjuntiva pink, sclera anicteric Pupils: Present: PERRL - Neck Neck exam general surgery: Present: supple, trachea midline. Absent: lymphadenopathy - Respiratory Respiratory exam: Present: CTAB. Absent: accessory muscle use, rales, rhonchi, wheezes - Cardiovascular Cardiovascular exam: Present: RRR, +S1, +S2. Absent: diastolic murmur, gallop, rubs, systolic murmur - GI/Abdominal GI/Abdominal exam: Present: normal bowel sounds, soft, no peritoneal signs. Absent: distended, tenderness - Extremities Exam Extremities exam: Present: warm, radial pulses palpable and symmetrical. Absent : calf tenderness, cyanotic, pedal edema - Neurological Exam Neurological exam: Present: CN II-XII intact, oriented X3, no focal deficits. Absent: pronater drift, facial droop, speech deficit - Skin Skin exam: Present: dry, intact Internal Medicine: Result - Labs CBC & Chem 7: 09/05/17 12:33 09/05/17 12:33 Labs: Short CBC 09/05/17 Range/Units 12:33 WBC 10.2 (4.3-11.1) K/mcL Hgb 14.1 (11.5-15.4) g/dL Hct 42.4 (35.3-44.9) % Plt Count 334 (140-400) K/mcL BMP 09/05/17 12:33 Sodium 142 Potassium 3.1 L Chloride 104 Carbon Dioxide 28 BUN 6 L Creatinine 1.28 H D Glucose 275 H Calcium 9.1 Liver Function 09/05/17 Range/Units 12:33 Total Bilirubin 0.4 (0.2-1.2) mg/dL AST 16 (5-34) Units/L ALT 12 (0-55) Units/L Alkaline Phosphatase 90 (38-126) Units/L Albumin 3.4 L (3.5-5.0) g/dL - ABG Interpretation ABG results: PT/INR, D-dimer PT 11.6 Seconds (9.4-12.1) 09/02/17 18:01 Consult Discharge Plan - Plan Referrals: Amanda Headley MD [Primary Care Provider] - 09/12/17 1:45 pm
[2017-09-06] MEDS: Piperacillin/Tazobactam 3.375 GM in D5% in Water (Mini-Bag+) 100 ML IVPB SCH ×2 (00:19→09:00)
[2017-09-06 05:22] LABS: Hematocrit 36.8 % (35.3-44.9); Mean Corpuscular HGB Conc 33.4 g/dL (31.6-35.5); Mean Corpuscular Hemoglobin 29.9 pg (28.0-33.3); Mean Corpuscular Volume 89.3 fL (83.0-100.0); Mean Platelet Volume 9.7 fL (9.4-12.4); Platelet Count 306 K/mcL (140-400); Red Blood Count 4.12 M/mcL (3.82-4.97); Red Cell Distribution Width 12.8 % (11.5-14.5)
[2017-09-06 05:36] LABS: Alanine Aminotransferase 11 Units/L (0-55); Albumin 2.8 g/dL (3.5-5.0); Albumin/Globulin Ratio 0.9 (1.1-2.2); Alkaline Phosphatase 73 Units/L (38-126); Aspartate Amino Transferase 15 Units/L (5-34); BUN/Creatinine Ratio 7 (6-26); Bilirubin,Total 0.5 mg/dL (0.2-1.2); Blood Urea Nitrogen 7 mg/dL (7-20); Calcium 8.6 mg/dL (8.6-10.8); Carbon Dioxide 28 mEq/L (19-29); Chloride 106 mEq/L (98-109); Globulin 3.2 g/dL (2.4-3.5); Glucose 189 mg/dL (70-99); Osmolality,Calculated 297 (280-300); Potassium 3.5 mEq/L (3.5-4.5); Sodium 142 mEq/L (136-145); eGFR For African Americans > 60 (> 60); eGFR For Non-African Americans 57 (> 60)
[2017-09-06 05:41] LABS: Hemoglobin 12.3 g/dL (11.5-15.4)
[2017-09-06] MEDS: Famotidine 20 MG/2 ML VIAL IVP SCH (05:50)
[2017-09-06] MEDS: *HR* Heparin 5,000 UNIT/ML VIAL SQ SCH (05:50)
[2017-09-06] MEDS: amLODIPine 5 MG TABLET PO SCH (09:30)
[2017-09-06] MEDS: Aspirin 81 MG TAB.CHEW PO SCH (09:30)
[2017-09-06] MEDS: Insulin LISPRO 300 UNITS/3 ML VIAL SQ SCH ×3 (09:33→17:16)
--- NOTE | 2017-09-06 10:39 | Discharge Summary ---
Date of Encounter: 09/06/17 Time of Encounter: 10:50 - Discharge Diagnosis (1) UTI (urinary tract infection) Priority: Primary Status: Acute Comments: Mckenzie Peña is an 81-year-old female with past medical history CVA, diabetes, hypertension and hyperlipidemia who presented to [facility] on 09/02/2017 after fall at home. She was found to have an UTI and was placed in observation status for IV ATB. She was discharged home on oral antibiotics in stable condition with outpatient follow-up. 1. UTI: UA indicative of UTI; Rocephin started on arrival. 09/02/2017 urine culture with Escherichia coli, ATB changed to Zosyn per sensitivity. She received 2 doses IV Zosyn, will be discharged on PO Bactrim for a total course of 7 days. Recommend follow-up with PCP within 1-2 weeks. 2. Fall: on day of presentation and in the setting of Sepsis/UTI; CT head - no acute hemorrhage, extensive chronic small vessel ischemic change with evidence of bilateral old infarct. CT C-spine - no acute fracture. Pelvis x-ray and elbow x-ray - no acute fracture. Evaluated by therapy who recommended SNF however patient declined. Plan to discharge to independent living apartment with [facility] 3. Chronic diastolic dysfunction: 09/03/2017 TTE with EF 60% and diastolic dysfunction. Appears compensated. 4. Sepsis: on arrival with tachycardia, elevated WBC, secondary to UTI. Sepsis quickly resolved with IV fluids and treating UTI. Hemodynamically stable, no further tachycardia, WBC normalized. 5. CVA: per hx. No residual deficits. Cont home ASA, plavix, statin 6. Essential hypertension: per hx. Holding home TALI with initiation of Bactrim due to potential risk of effecting renal function. BP controlled with amlodipine while inpatient. Cont amlodipine at discharge, hold TALI. Recommend follow-up with PCP within 1-2 week for repeat CMP, BP recheck and medication adjustment Qualifiers: Urinary tract infection type: acute cystitis Hematuria presence: without hematuria Qualified Code(s): N30.01 - Acute cystitis with hematuria (2) Fall Priority: Primary Status: Acute Qualifiers: Encounter type: initial encounter Qualified Code(s): W19.XXXA - Unspecified fall, initial encounter (3) CVA (cerebral vascular accident) Priority: Secondary Status: Chronic Qualifiers: CVA mechanism: unspecified Qualified Code(s): I63.9 - Cerebral infarction, unspecified (4) Hypertension Priority: Primary Status: Chronic Qualifiers: Hypertension type: essential hypertension Qualified Code(s): I10 - Essential (primary) hypertension - Discharge Medications Prescriptions: amLODIPine [Norvasc] 10 mg PO DAILY #60 tablet Sulfamethoxazole/Trimeth DS [Bactrim DS] 1 each PO BID #12 tablet Home Medications: Aspirin 81 mg PO DAILY 03/26/16 [History] Ranitidine HCl [Heartburn Relief] 150 mg PO BID 03/26/16 [History] Citalopram Hydrobromide [Celexa] 10 mg PO DAILY 09/03/17 [History] Clopidogrel [Plavix] 75 mg PO DAILY 09/03/17 [History] Pravastatin Sodium [Pravachol] 40 mg PO DAILY 09/03/17 [History] Tolterodine Tartrate [Detrol] 2 mg PO BID 09/03/17 [History] Sulfamethoxazole/Trimeth DS [Bactrim DS] 1 each PO BID #12 tablet 09/06/17 [Rx] amLODIPine [Norvasc] 10 mg PO DAILY #60 tablet 09/06/17 [Rx] Allergies/Adverse Reactions: 3 Allergy/AdvReac Type Severity Reaction Status Date / Time No Known Allergies Allergy Verified 03/26/16 17:42 Date of admission: 09/02/17 20:05 Primary care physician: Amanda Headley Consults: 09/03/17 12:48 Consult to Occupational Therapy [CONS] Routine Comment: Evaluate, develop and implement POC Reason for Consult: falls Consult to Physical Therapy [CONS] Routine Comment: Evaluate, develop and implement POC Reason for Consult: falls Discharging clinician: Mariya Krishnan Anticipated date of discharge: 09/06/17 - Patient Status Disposition: Home Health Service Condition: Good Functional capacity at discharge: uses cane/walker Overall status at discharge: patient is back to baseline - Discharge Instructions Follow Up With: Amanda Headley MD [Primary Care Provider] - 09/12/17 1:45 pm - Diet and Activity Activity: as per physical therapy Diet: advance to your usual diet Interval History: Seen and examined at bedside, patient says she feels much better. Says she no longer wants to go to SNF, says she wants to go home. Says she has a kitten at home that she needs to take care of. Says she feels better overall and has no complaints Hospital course: Ms. Peña is a 81 year old female - Time Spent with Patient Total time spent providing and/or coordinating discharge services: - Constitutional Vitals: Temp Pulse Resp BP Pulse Ox 98.4 F 80 18 157/85 95 09/06/17 07:21 09/06/17 07:21 09/06/17 07:21 09/06/17 07:21 09/06/17 07:21 General appearance: Present: A&O X 3, pleasant, no acute distress, answers questions appropriately - Head Head exam: Present: atraumatic, normocephalic - Eye Eye exam: Present: PERRL, conjuntiva pink, sclera anicteric Pupils: Present: PERRL - Neck Neck exam general surgery: Present: supple, trachea midline. Absent: lymphadenopathy - Respiratory Respiratory exam: Present: CTAB. Absent: accessory muscle use, rales, rhonchi, wheezes - Cardiovascular Cardiovascular exam: Present: RRR, +S1, +S2. Absent: diastolic murmur, gallop, rubs, systolic murmur - GI/Abdominal GI/Abdominal exam: Present: normal bowel sounds, soft, no peritoneal signs. Absent: distended, tenderness - Extremities Exam Extremities exam: Present: warm, radial pulses palpable and symmetrical. Absent : calf tenderness, cyanotic, pedal edema - Neurological Exam Neurological exam: Present: CN II-XII intact, oriented X3, no focal deficits. Absent: pronater drift, facial droop, speech deficit - Skin Skin exam: Present: dry, intact
[2017-09-06] MEDS ORDERED: Sulfamethoxazole/Trimeth DS 1 EACH TABLET PO SCH (11:15)
[2017-09-06 11:16] VITALS: BP 140/75
--- NOTE | 2017-09-06 11:50 | Physician Discharge Referral ---
Home Health/Hosp Referral Info Transfer to: Home Health Attending Provider: Mariya Long CNP Provider in Charge Post Discharge: PCP - Diagnosis (1) UTI (urinary tract infection) Status: Acute (2) Fall Status: Acute (3) CVA (cerebral vascular accident) Status: Chronic (4) Hypertension Status: Chronic - Respiratory Orders None Smoking Cessation: Smoking cessation has been advised. For more information, call the H2020 Tobacco Quit Line at 5-693-QGOV-NOW. - Diet/Nutrition Diet/Nutrition Orders: Regular - Activity Activity Orders: Walker - Services Needed Following services are medically necessary services: Nursing, Home Health Aide, Physical Therapy, Occupational Therapy - Transfer Medications Prescriptions: amLODIPine [Norvasc] 10 mg PO DAILY #60 tablet Sulfamethoxazole/Trimeth DS [Bactrim DS] 1 each PO BID #12 tablet Home Medications: Aspirin 81 mg PO DAILY 03/26/16 [History] Ranitidine HCl [Heartburn Relief] 150 mg PO BID 03/26/16 [History] Citalopram Hydrobromide [Celexa] 10 mg PO DAILY 09/03/17 [History] Clopidogrel [Plavix] 75 mg PO DAILY 09/03/17 [History] Pravastatin Sodium [Pravachol] 40 mg PO DAILY 09/03/17 [History] Tolterodine Tartrate [Detrol] 2 mg PO BID 09/03/17 [History] Sulfamethoxazole/Trimeth DS [Bactrim DS] 1 each PO BID #12 tablet 09/06/17 [Rx] amLODIPine [Norvasc] 10 mg PO DAILY #60 tablet 09/06/17 [Rx] Allergies/Adverse Reactions: 3 Allergy/AdvReac Type Severity Reaction Status Date / Time No Known Allergies Allergy Verified 03/26/16 17:42 Certification: Further, I certify that my clinical findings support that this patient is homebound (i.e. absences from home require considerable and taxing effort and are for medical reasons or hinduism services or infrequently or short duration when for other reasons) because: Homebound Reason: Patient requires assistance of a person or device to safely leave home Attestation: My signature below is to certify that this patient is under my care and that I, or nurse practitioner, or a physician's project assistant working with me, has a face-to -face encounter with this patient.
== END 2017-09-06 18:14 | disposition home health service (06) ==
LOC: EMEROO 16:53 → 3BNU 16:53
PROVIDERS: ADMIT Family Medicine; ATTEND Registered Nurse

== ENCOUNTER 2018-07-24 20:10 | Inpatient (IN) ==
[2018-07-24] MEDS ORDERED: *HR* HYDROmorphone (PF) 1 MG/ML SYRINGE IVP ONE (21:51)
--- NOTE | 2018-07-24 22:42 | Emergency Department Note ---
Disposition Clinical Impression: Intertrochanteric fracture of left femur Qualifiers: Encounter type: initial encounter Fracture type: closed Fracture alignment: nondisplaced Qualified Code(s): S72.145A - Nondisplaced intertrochanteric fracture of left femur, initial encounter for closed fracture Disposition: Admitted As Inpatient Condition: Fair Time of Disposition: 22:42 General Adult HPI - General Chief complaint: ED Fall Stated complaint: fall Time Seen by Provider: 07/24/18 20:16 Source: patient, EMS Mode of arrival: EMS Limitations: no limitations Nursing Notes Reviewed: Yes Vital Signs Reviewed: Yes - History of Present Illness HPI Narrative: Patient is an 82-year-old female past medical history of being on clopidogrel presents emergency department for a mechanical fall that occurred at home at her assisted living facility. The patient states that she was walking with her walker and tripped over the rug landing on her left hip and hitting her left head. She denies any LOC, but she states she difficulty getting up due to the excruciating pain in her left hip. Pain Scale: 6 - Related Data Home Medications Medication Instructions Recorded Confirmed Aspirin 81 mg PO DAILY 03/26/16 07/24/18 Clopidogrel [Plavix] 75 mg PO DAILY 09/03/17 07/24/18 Glimepiride [Amaryl] 2 mg PO DAILY 07/24/18 07/24/18 Losartan Potassium [Cozaar] 50 mg PO DAILY 07/24/18 07/24/18 Multivitamin [One Daily Essential] 1 tab PO DAILY 07/24/18 07/24/18 Solifenacin Succinate [Vesicare] 10 mg PO DAILY 07/24/18 07/24/18 Triamcinolone Acetonide [Nasacort] 1 puff NS DAILY 07/24/18 07/24/18 Trospium Chloride 20 mg PO DAILY 07/24/18 07/24/18 Vitamin B Complex/Folic Acid [Sm 0.4 mg PO DAILY 07/24/18 07/24/18 Vitamin B Complex Tablet] raNITIdine HCl [Zantac] 150 mg PO BID 07/24/18 07/24/18 Previous Rx's Medication Instructions Recorded amLODIPine [Norvasc] 10 mg PO DAILY #60 tablet 09/06/17 Allergies Allergy/AdvReac Type Severity Reaction Status Date / Time No Known Allergies Allergy Verified 07/24/18 22:25 All systems ED: reviewed and negative except as stated. Review of Systems: As Per HPI Musculoskeletal: Reports: arthralgia Past Medical History - Past Medical History Attestation: Yes The following information was validated with the patient. Medical history: Reports: CVA, diabetes, GERD, hyperlipidemia, hypertension Surgical history: Reports: appendectomy, cholecystectomy, hysterectomy Psychiatric history: Reports: no psych history - Social History Smoking Status: Former smoker Smokeless Tobacco Status: No Alcohol use: Reports: rarely Drug use: Reports: none Physical Exam CONSTITUTIONAL: Well-appearing; well-nourished; A&O X3 and no evidence of shock. Patient does appear to be having moderate to severe pain in her left hip. HEAD: Normocephalic; atraumatic. No jarrell sign, raccoon eyes or evidence of CSF drainage EYES: PERRL, EOMI, no scleral icterus EARS: No hemotympanum or TM rupture, no otorrhea NECK: No tracheal deviation, JVD, or hematoma. Palpation of the posterior cervical spine reveals no tenderness NOSE: The nose is normal in appearance without rhinorrhea, epistaxis, or septal hematoma. MOUTH: Normal with intact dentition CHEST: no chest tenderness with palpation RESP: Normal chest excursion with respiration, no paradoxical motion, subcutaneous emphysema. The breath sounds are clear and equal bilaterally CARD: Regular rhythm, without murmurs, rub or gallop ABD: No distention, ecchymosis, abrasions. Non-tender, soft, without rigidity , rebound or guarding PELVIS: No laxity or tenderness with palpation or compression EXT: Good ROM without tenderness, deformity, except for the patient's left hip which is severely painful with palpation and patient has her leg turned inwards underneath her right leg and has very limited range of motion secondary to pain. Pulses 2+ in 4 extremities SKIN: Normal for age and race; warm and dry; no apparent lesions, not pale or diaphoretic - General Limitations: no limitations General appearance: alert Course Course Narrative: Patient underwent a head CT to evaluate for head injury as well as a x-ray of her left hip to evaluate for hip fracture. Her left hip x-ray did show a intertrochanteric fracture. Her pain was well controlled with Dilaudid. I discussed the patient's case with Dr. Brooks and he agrees to see the patient in the hospital in the morning. Discussed with the hospitalist oncchelita and he agrees to accept the patient. Vital Signs Temperature 98.2 F 07/24/18 20:15 Pulse Rate 114 07/24/18 20:15 Respiratory Rate 22 07/24/18 20:15 Blood Pressure 91/73 07/24/18 20:15 O2 Sat by Pulse Oximetry 95 07/24/18 20:15 Temperature 97.6 F 07/24/18 23:49 Pulse Rate 115 07/24/18 23:49 Respiratory Rate 15 07/24/18 23:49 Blood Pressure 135/78 07/24/18 23:49 O2 Sat by Pulse Oximetry 95 07/24/18 23:49 Oxygen Delivery Oxygen Delivery Room Air Medical Decision Making - Medical Records Medical records reviewed: Yes I reviewed the patient's medical records. - Lab Data Result diagrams: 07/24/18 23:22 07/24/18 23:22 - Radiology Data Radiology results reviewed: Yes I reviewed the patient's radiology results. Head CT 07/24/18 20:22 IMPRESSION: No acute intracranial abnormality. Age-appropriate atrophy and small-vessel disease ischemic changes. D/ / Anna Liu MD / Anna Liu MD Interpreting Provider: Anna Liu MD Hip X-Ray 07/24/18 20:23 IMPRESSION: Acute intertrochanteric left hip fracture. D/ / Rambo Castro MD / Rambo Castro MD Interpreting Provider: Rambo Castro MD
[2018-07-25 00:06] LABS: Activated Partial Thrombo Time 26.8 Seconds (26.0-36.0)
[2018-07-25 00:28] LABS: Blood Urea Nitrogen 21 mg/dL (8-23); Calcium 9.2 mg/dL (8.6-10.3); Carbon Dioxide 24 mEq/L (23-29); Chloride 104 mEq/L (98-107); Glucose 236 mg/dL (70-105); Osmolality,Calculated 295 (280-300); Potassium 3.6 mEq/L (3.5-5.1); Sodium 137 mEq/L (136-145)
[2018-07-25 00:32] LABS: Basophils # 0.1 K/mcL (0.0-0.2); Basophils % 0.4 %; Eosinophils % 0.1 %; Hematocrit 39.5 % (35.3-44.9); Hemoglobin 13.1 g/dL (11.5-15.4); Immature Granulocytes % 0.5 % (0-4); Lymphocytes # 1.3 K/mcL (0.6-4.6); Lymphocytes % 6.4 %; Mean Corpuscular HGB Conc 33.2 g/dL (31.6-35.5); Mean Corpuscular Hemoglobin 31.1 pg (28.0-33.3); Mean Corpuscular Volume 93.8 fL (83.0-100.0); Mean Platelet Volume 9.9 fL (9.4-12.4); Monocytes # 0.8 K/mcL (0.0-1.3); Monocytes % 3.9 %; Neutrophils # 17.5 K/mcL (1.6-8.9); Platelet Count 304 K/mcL (140-400); Red Blood Count 4.21 M/mcL (3.82-4.97); Red Cell Distribution Width 12.7 % (11.5-14.5); Segmented Neutrophils % 88.7 %
[2018-07-25] MEDS ORDERED: *HR* HYDROcodone/Acet 5/325 mg TABLET PO PRN (01:20)
[2018-07-25] MEDS ORDERED: *HR* FentaNYL (PF) 100 MCG/2 ML VIAL IVP PRN (01:21)
[2018-07-25] MEDS ORDERED: Naloxone 0.4 MG/ML INJ IVP PRN ×3 (01:32→16:57)
[2018-07-25] MEDS ORDERED: 0.9 % Sodium Chloride 1,000 ML IVC SCH (01:45)
[2018-07-25 03:20] LABS: BUN/Creatinine Ratio 20 (6-26); eGFR For Non-African Americans 50 (> 60)
[2018-07-25] MEDS: *HR* Heparin 5,000 UNIT/ML VIAL SQ SCH ×4 (03:32→20:43)
[2018-07-25 06:36] LABS: Basophils # 0.1 K/mcL (0.0-0.2); Basophils % 0.3 %; Hematocrit 37.5 % (35.3-44.9); Hemoglobin 12.8 g/dL (11.5-15.4); Immature Granulocytes % 0.6 % (0-4); Lymphocytes # 0.9 K/mcL (0.6-4.6); Lymphocytes % 4.8 %; Mean Corpuscular HGB Conc 34.1 g/dL (31.6-35.5); Mean Corpuscular Hemoglobin 31.2 pg (28.0-33.3); Mean Corpuscular Volume 91.5 fL (83.0-100.0); Mean Platelet Volume 9.9 fL (9.4-12.4); Monocytes # 0.6 K/mcL (0.0-1.3); Monocytes % 2.9 %; Neutrophils # 17.6 K/mcL (1.6-8.9); Platelet Count 303 K/mcL (140-400); Red Cell Distribution Width 12.7 % (11.5-14.5); Segmented Neutrophils % 91.4 %
[2018-07-25 06:56] LABS: Alanine Aminotransferase 17 Units/L (7-52); Albumin 4.2 g/dL (3.5-5.7); Albumin/Globulin Ratio 1.4 (1.1-2.2); Alkaline Phosphatase 90 Units/L (34-104); Aspartate Amino Transferase 19 Units/L (13-39); BUN/Creatinine Ratio 21 (6-26); Bilirubin,Total 0.5 mg/dL (0.3-1.0); Blood Urea Nitrogen 19 mg/dL (8-23); Calcium 9.3 mg/dL (8.6-10.3); Carbon Dioxide 27 mEq/L (23-29); Chloride 102 mEq/L (98-107); Globulin 3.1 g/dL (2.4-3.5); Glucose 249 mg/dL (70-105); Osmolality,Calculated 295 (280-300); Potassium 3.9 mEq/L (3.5-5.1); Sodium 137 mEq/L (136-145); Total Protein 7.3 g/dL (6.4-8.9); eGFR For Non-African Americans 58 (> 60)
--- NOTE | 2018-07-25 07:13 | Orthopedic Consult Note ---
Date of Encounter: 07/25/18 Time of Encounter: 07:10 Assessment and Plan (1) Intertrochanteric fracture of left femur Current Visit: Yes Status: Acute I did discuss the diagnosis in detail the patient. She has a left displaced intertrochanteric hip fracture. I did discuss treatment options and my recommendation was for reduction and fixation of the left hip in order to reduce and stabilize the hip to provide pain control and to help facilitate nursing care. The risks discussed included but were not limited to stiffness, bleeding, infection, blood clots, damage to neurovascular structures, tendons, ligaments, and bone. Also discussed was the risk of continued symptoms and possible need for further procedures. I did discuss the anesthesia risks including stroke, heart attack, and . The patient is aware the risk of periprosthetic fracture. I did explain the saw the patient in simple terms and she did wish to proceed and consent was obtained. Qualifiers: Encounter type: initial encounter Fracture type: closed Fracture alignment: nondisplaced Qualified Code(s): S72.145A - Nondisplaced intertrochanteric fracture of left femur, initial encounter for closed fracture History of Present Illness HPI: Ms. Peña is a 82 year old femalewwho is currently admitted to the hospitalist after fall resulting in a left intertrochanteric hip fracture. She complains of isolated sharp and achy pain localized to the left hip, worse with use and movement and better with rest. She denies other injuries. She denies numbness, tingling, or any other associated signs or symptoms or modifying factors. She specifically denies headaches, neck pain, chest pain, abdominal pain, bilateral upper extremity pain, and right lower extremity pain. 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 Psychiatric history: no psych history - Past Surgical History Surgical History: appendectomy, cholecystectomy, hysterectomy Additional surgical history: Right ovary removed. - Social History Smoking Status: Former smoker Smokeless Tobacco Status: No Alcohol use: rarely Drug use: none - Family History Father History Unknown: Yes Living Status: Hx Family Cardiac Disorders: Yes Mother Adopted: [place]: Sissy Moses Age: 82 Family Member Ethnicity: Non- Living Status: Age at : 82 Cause of : Stroke/heart attack Hx Family Cardiac Disorders: Yes (Heart disease) Hx Family Neuromuscular Disorders: Yes Hx Family Neurologic Disorders: Yes ("Several Strokes") Medications and Allergies Aspirin 81 mg PO DAILY 03/26/16 [History] Clopidogrel [Plavix] 75 mg PO DAILY 09/03/17 [History] amLODIPine [Norvasc] 10 mg PO DAILY #60 tablet 09/06/17 [Rx] Glimepiride [Amaryl] 2 mg PO DAILY 07/24/18 [History] Losartan Potassium [Cozaar] 50 mg PO DAILY 07/24/18 [History] Multivitamin [One Daily Essential] 1 tab PO DAILY 07/24/18 [History] Solifenacin Succinate [Vesicare] 10 mg PO DAILY 07/24/18 [History] Triamcinolone Acetonide [Nasacort] 1 puff NS DAILY 07/24/18 [History] Trospium Chloride 20 mg PO DAILY 07/24/18 [History] Vitamin B Complex/Folic Acid [Sm Vitamin B Complex Tablet] 0.4 mg PO DAILY 07/24 [History] raNITIdine HCl [Zantac] 150 mg PO BID 07/24/18 [History] 3 Allergy/AdvReac Type Severity Reaction Status Date / Time No Known Allergies Allergy Verified 07/24/18 22:25 All Systems Reviewed: Constitutional and musculoskeletal systems were reviewed and are negative unless otherwise stated in history of present illness. Physical Exam - Constitutional Vitals: Temp Pulse Resp BP Pulse Ox 98.7 F 111 15 145/86 92 07/25/18 06:36 07/25/18 06:36 07/25/18 06:36 07/25/18 06:36 07/25/18 06:36 Constitutional -Vitals reviewed -The patient is well developed and well nourished. -Mood is pleasant. -The patient is well groomed. Psychiatric -The patient is fully alert and oriented x 3. Respiratory: -Respiratory effort normal Abdomen: -Soft abdomen -Non tender -Non distended: Left upper extremity: -No deformities. The overlying skin is intact. No obvious signs of acute trauma. -No tenderness to palpation throughout. -No significant pain with passive motion of the shoulder, elbow, wrist, and fingers within the limits of the bed. -Able to make an "OK" sign, cross the index and long fingers, and extend the thumb. -Sensation grossly intact to light touch throughout the median, radial, and ulnar distributions. -Radial pulse is present; Fingers have good capillary refill. Right upper extremity: -No deformities. The overlying skin is intact. No obvious signs of acute trauma. -No tenderness to palpation throughout. -No significant pain with passive motion of the shoulder, elbow, wrist, and fingers within the limits of the bed. -Able to make an "OK" sign, cross the index and long fingers, and extend the thumb. -Sensation grossly intact to light touch throughout the median, radial, and ulnar distributions. -Radial pulse is present; Fingers have good capillary refill. Left lower extremity: -The extremity is shortened and externally rotated. The overlying skin is intact. -There is tenderness in the groin region as well as the proximal lateral thigh. -I did not range the hip due to the known fracture. -No tenderness along the distal thigh, leg, ankle, foot, or toes. -Able to dorsiflex and plantarflex the ankle and toes. -Sensation is grossly intact to light touch throughout the sural, saphenous, superficial peroneal, and deep peroneal distributions. -Toes have good capillary refill. Right lower extremity: -No deformities. The overlying skin is intact. No obvious signs of acute trauma. -No tenderness to palpation throughout. -No pain with passive motion of the hip, knee, ankle, and toes within the limits of the bed. -No pain with axial loading of the thigh. -Able to dorsiflex and plantarflex the ankle and toes. -Sensation is grossly intact to light touch throughout the sural, saphenous, superficial peroneal, and deep peroneal distributions. -Toes have good capillary refill. Diagnostic Imaging: I did personally review and interpret x-rays of the left hip which show a displaced intertrochanteric hip fracture Results - Labs Result Diagrams: 07/25/18 05:47 07/25/18 05:47 Labs: Abnormal lab results WBC 19.3 K/mcL (4.3-11.1) H 07/25/18 05:47 Neutrophils # 17.6 K/mcL (1.6-8.9) H 07/25/18 05:47 Est GFR (Non-Af Amer) 58 (> 60) L 07/25/18 05:47 Glucose 249 mg/dL (70-105) H 07/25/18 05:47 H & H 07/24/18 07/25/18 Range/Units 23:22 05:47 Hgb 13.1 12.8 (11.5-15.4) g/dL Hct 39.5 37.5 (35.3-44.9) % All other labs normal. Consult Discharge Plan - Plan Referrals: Amanda Headley MD [Primary Care Provider] -
[2018-07-25] MEDS ORDERED: traMADol 50 MG TABLET PO PRN ×2 (08:13→16:57)
[2018-07-25] MEDS ORDERED: Dextrose Gel 15 GM/37.5 ML TUBE PO PRN ×4 (08:18→16:57)
[2018-07-25] MEDS ORDERED: *HR* Dextrose 50 % in Water (Syg) 50 ML SYRINGE IVP PRN ×2 (08:18→16:57)
[2018-07-25] MEDS ORDERED: D5% in Water 1,000 ML IVC PRN ×4 (08:18→20:29)
[2018-07-25] MEDS ORDERED: D5% in 0.45% NACL 1,000 ML IVC SCH ×2 (08:30→16:57)
--- NOTE | 2018-07-25 10:21 | Anesthesia Evaluation PreOp ---
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: CVA (left leg weakness) Other Medical History: Diabetes Type II, GERD Anesthesia History: No Prior Anesthetic Complications, Past Anesthesia (appy, GB , GRECIA) : No Alcohol Use: rarely Drug use: none Medications and Allergies Aspirin 81 mg PO DAILY 03/26/16 [History] Clopidogrel [Plavix] 75 mg PO DAILY 09/03/17 [History] amLODIPine [Norvasc] 10 mg PO DAILY #60 tablet 09/06/17 [Rx] Glimepiride [Amaryl] 2 mg PO DAILY 07/24/18 [History] Losartan Potassium [Cozaar] 50 mg PO DAILY 07/24/18 [History] Multivitamin [One Daily Essential] 1 tab PO DAILY 07/24/18 [History] Solifenacin Succinate [Vesicare] 10 mg PO DAILY 07/24/18 [History] Triamcinolone Acetonide [Nasacort] 1 puff NS DAILY 07/24/18 [History] Trospium Chloride 20 mg PO DAILY 07/24/18 [History] Vitamin B Complex/Folic Acid [Sm Vitamin B Complex Tablet] 0.4 mg PO DAILY 07/24 [History] raNITIdine HCl [Zantac] 150 mg PO BID 07/24/18 [History] 3 Allergy/AdvReac Type Severity Reaction Status Date / Time No Known Allergies Allergy Verified 07/24/18 22:25 - Meds/Allergy Pre-op Review Medications Reviewed: Yes Allergies Reviewed: Yes Beta Blockers on Current Med List: No Anesthesia Results - Labs 07/25/18 05:47 07/25/18 05:47 - Imaging EKG: report reviewed, image reviewed Additional studies: Echo 2017 Impressions: LVEF 65-70%. Normal left ventricular size and systolic function. There is evidence of mild diastolic dysfunction of the left ventricle. Normal right ventricular size and function. Mild mitral regurgitation. Mild pulmonic regurgitation. No pulmonary hypertension. Anesthesia Exam Vital Signs/O2 Sat/Glucose, Most Recent Temp Pulse Resp BP Pulse Ox 98.7 F 111 15 145/86 92 07/25/18 06:36 07/25/18 06:36 07/25/18 06:36 07/25/18 06:36 07/25/18 09:15 - HEENT Pupil (Motor): Abnormal (blind left eye) Mallampati: II Denture Type: Upper: Complete, Lower: Complete Oral Opening: Greater than 3 - PHYSICAL THERAPY TECHNICIAN LOC: Oriented PHYSICAL THERAPY TECHNICIAN Motor: Normal RUE, Normal LUE, Normal LLE, Normal Face, Deficit RLE PHYSICAL THERAPY TECHNICIAN Sensory: Normal: RUE, LUE, RLE, LLE, Face - Cardiac Rhythm: Regular Murmur: None - Pulmonary Breath Sounds: bilateral Clear Respiratory Effort: Symmetrical Anesthesia Assess/Plan ASA Score: 3 Modified Marisela Scale for Level of Consciousness: Cooperative, oriented, and tranquil Anesthetic Plan: General Monitoring Plan: Standard Monitors Recovery Plan: PACU
--- NOTE | 2018-07-25 10:56 | Orthopedic Consult Note ---
Date of Encounter: 07/25/18 Time of Encounter: 10:55 Assessment and Plan (1) Intertrochanteric fracture of left femur Current Visit: Yes Status: Acute The diagnosis and treatment recommendations were discussed with the patient. She has a intertrochanteric fracture of the left hip and to allow her opportunity for early mobility, and for pain control and to decrease the risks associated with immobility, surgical treatment was recommended. After discussing the pros and cons of treatment options including non-operative and operative intervention, the patient has consented for left hip cephalomedullary nail to be performed. The risks and benefits of the procedure were fully explained in detail, including but not limited to the risk of infection, neurovascular injury, continued pain or stiffness, failure of surgery, reinjury , or need for additional surgery, DVT, PE, general risks of anesthesia and loss of limb or life. No guarantees were given or implied and all questions were answered. The patient understands all the risks and does wish to proceed with written consent. Appreciate medical management from primary team. Plan for surgery today. Qualifiers: Encounter type: initial encounter Fracture type: closed Fracture alignment: displaced Qualified Code(s): S72.142A - Displaced intertrochanteric fracture of left femur, initial encounter for closed fracture History of Present Illness HPI: Ms. Peña is a 82 year old female who is currently admitted to the hospitalist after fall resulting in a left intertrochanteric hip fracture. She states it was a mechanical fall at her assisted living facility as she tripped when using her walker. Denies prodromal symptoms prior to the fall. She complains of isolated sharp and achy pain localized to the left hip, worse with use and movement and better with rest. She denies other injuries. She denies numbness , tingling, or any other associated signs or symptoms or modifying factors. She specifically denies headaches, neck pain, chest pain, abdominal pain, bilateral upper extremity pain, and right lower extremity pain. 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 Psychiatric history: no psych history - Past Surgical History Surgical History: appendectomy, cholecystectomy, hysterectomy Additional surgical history: Right ovary removed. - Social History Smoking Status: Former smoker Smokeless Tobacco Status: No Alcohol use: rarely Drug use: none - Family History Father History Unknown: Yes Living Status: Hx Family Cardiac Disorders: Yes Mother Adopted: [place]: Sissy Moses Age: 82 Family Member Ethnicity: Non- Living Status: Age at : 82 Cause of : Stroke/heart attack Hx Family Cardiac Disorders: Yes (Heart disease) Hx Family Neuromuscular Disorders: Yes Hx Family Neurologic Disorders: Yes ("Several Strokes") Medications and Allergies Aspirin 81 mg PO DAILY 03/26/16 [History] Clopidogrel [Plavix] 75 mg PO DAILY 09/03/17 [History] amLODIPine [Norvasc] 10 mg PO DAILY #60 tablet 09/06/17 [Rx] Glimepiride [Amaryl] 2 mg PO DAILY 07/24/18 [History] Losartan Potassium [Cozaar] 50 mg PO DAILY 07/24/18 [History] Multivitamin [One Daily Essential] 1 tab PO DAILY 07/24/18 [History] Solifenacin Succinate [Vesicare] 10 mg PO DAILY 07/24/18 [History] Triamcinolone Acetonide [Nasacort] 1 puff NS DAILY 07/24/18 [History] Trospium Chloride 20 mg PO DAILY 07/24/18 [History] Vitamin B Complex/Folic Acid [Sm Vitamin B Complex Tablet] 0.4 mg PO DAILY 07/24 [History] raNITIdine HCl [Zantac] 150 mg PO BID 07/24/18 [History] 3 Allergy/AdvReac Type Severity Reaction Status Date / Time No Known Allergies Allergy Verified 07/24/18 22:25 All Systems Reviewed: The remainder of the systems were reviewed and are negative except as noted in the HPI Physical Exam - Constitutional Vitals: Temp Pulse Resp BP Pulse Ox 98.7 F 111 15 145/86 92 07/25/18 06:36 07/25/18 06:36 07/25/18 06:36 07/25/18 06:36 07/25/18 09:15 Exam: Constitutional -Vitals reviewed -The patient is well developed and well nourished. -Mood is pleasant. -The patient is well groomed. Psychiatric -The patient is fully alert and oriented x 3. Respiratory: -Respiratory effort normal Abdomen: -Soft abdomen -Non tender -Non distended: Left upper extremity: -No deformities. The overlying skin is intact. No obvious signs of acute trauma. -No tenderness to palpation throughout. -No significant pain with passive motion of the shoulder, elbow, wrist, and fingers within the limits of the bed. -Able to make an "OK" sign, cross the index and long fingers, and extend the thumb. -Sensation grossly intact to light touch throughout the median, radial, and ulnar distributions. -Radial pulse is present; Fingers have good capillary refill. Right upper extremity: -No deformities. The overlying skin is intact. No obvious signs of acute trauma. -No tenderness to palpation throughout. -No significant pain with passive motion of the shoulder, elbow, wrist, and fingers within the limits of the bed. -Able to make an "OK" sign, cross the index and long fingers, and extend the thumb. -Sensation grossly intact to light touch throughout the median, radial, and ulnar distributions. -Radial pulse is present; Fingers have good capillary refill. Left lower extremity: -The extremity is shortened and externally rotated. The overlying skin is intact. -There is tenderness in the groin region as well as the proximal lateral thigh. -I did not range the hip due to the known fracture. -No tenderness along the distal thigh, leg, ankle, foot, or toes. -Able to dorsiflex and plantarflex the ankle and toes. -Sensation is grossly intact to light touch throughout the sural, saphenous, superficial peroneal, and deep peroneal distributions. -Toes have good capillary refill. Right lower extremity: -No deformities. The overlying skin is intact. No obvious signs of acute trauma. -No tenderness to palpation throughout. -No pain with passive motion of the hip, knee, ankle, and toes within the limits of the bed. -No pain with axial loading of the thigh. -Able to dorsiflex and plantarflex the ankle and toes. -Sensation is grossly intact to light touch throughout the sural, saphenous, superficial peroneal, and deep peroneal distributions. -Toes have good capillary refill. Diagnostic Imaging: I did personally review and interpret x-rays which show a displaced intertrochanteric left hip fracture Results - Labs Result Diagrams: 07/25/18 05:47 07/25/18 05:47 Labs: Abnormal lab results WBC 19.3 K/mcL (4.3-11.1) H 07/25/18 05:47 Neutrophils # 17.6 K/mcL (1.6-8.9) H 07/25/18 05:47 Est GFR (Non-Af Amer) 58 (> 60) L 07/25/18 05:47 Glucose 249 mg/dL (70-105) H 07/25/18 05:47 All other labs normal. Consult Discharge Plan - Plan Referrals: Amanda Headley MD [Primary Care Provider] -
[2018-07-25] MEDS ORDERED: Insulin LISPRO 300 UNITS/3 ML VIAL SQ SCH ×2 (12:00→18:00)
[2018-07-25] MEDS ORDERED: *HR* HYDROmorphone (PF) 1 MG/ML SYRINGE IVP PRN ×2 (14:27→16:57)
[2018-07-25] MEDS ORDERED: *HR* Labetalol 20 MG/4 ML SYRINGE IVP PRN ×2 (14:27→16:57)
[2018-07-25] MEDS ORDERED: Acetaminophen IV 1,000 MG/100 ML INFUS..BTL IVPB ONE ×2 (14:27→16:57)
[2018-07-25] MEDS ORDERED: *HR* PHENYLEPHRINE 1,000 MCG/10 ML SYRINGE IVP ONE (14:36)
[2018-07-25] MEDS ORDERED: Lidocaine -MPF 2% 2 ML VIAL ONE (14:36)
[2018-07-25] MEDS ORDERED: *HR* Propofol 200 MG/20 ML VIAL IVP ONE (14:36)
[2018-07-25] MEDS ORDERED: *HR* FentaNYL (PF) 100 MCG/2 ML VIAL ONE (14:36)
[2018-07-25] MEDS ORDERED: Ondansetron 4 MG/2 ML VIAL ONE (15:08)
[2018-07-25] MEDS ORDERED: Ketorolac 30 MG/ML VIAL ONE (15:08)
--- NOTE | 2018-07-25 15:49 | Orthopedic Operative Note ---
Date of procedure: 07/25/18 Procedure: Procedure: Left hip cephalomedullary nail Preoperative diagnosis: Left hip intertrochanteric fracture Postoperative diagnosis: Same Surgeon: Sunny Malloy MD Anesthesia: General EBL: 100 cc Complications: None Components used: Synthes TFNA 11 x 170 mm/130 degree nail, 80 mm helical blade, 5.0 x 32 mm locking screw Indications: This is an 82 yo female who sustained a mechanical fall onto her left side, causing her left hip pain and deformity. She was brought to the emergency department and imaging confirmed a left hip intertrochanteric fracture , she was then admitted to the hospitalist service for definitive management. After discussing the procedure at length, the patient elected for operative management with a cephalomedullary nail of the left hip. The risks and benefits the procedure were fully explained. Those risks included but are not limited to , infection, neurovascular injury, continued pain, arthritis, stiffness, further injury, need for further surgery, DVT, PE, loss of limb, and loss of life. The patient understood all these risks and wished to proceed. Informed consent was obtained. No guarantees were stated or implied. Operative report: The patient was assessed and cleared by the medical group prior to surgery. Patient was brought to the holding area. Left lower extremity was marked, the patient was taken to the operating room, general anesthetic was administered and she was transferred to the hospital bed. The patient's head, neck and airway were protected by anesthesia throughout the case. The patient was then transferred to the fracture table and placed in supine position with a well padded perineal post. All bony prominences were well-padded. Left leg was attached to traction device and the fracture bed. The right leg was then placed in a well leg gann and positioned out of the way of fluoroscopy. The fracture table was then utilized to reduce the fracture and obtain fluoroscopic images in AP and lateral planes confirming alignment. The left lower extremity was then prepped and draped in the normal sterile orthopedic fashion. Preoperative antibiotics were given prior to incision. A surgical time out protocol was then performed. An incision was made just proximal to the greater trochanter. Dissection was carried down through the IT band sharply. The greater trochanter was then palpated and a guidepin was placed in the appropriate starting position on the greater trochanter. The guidepin was advanced into the proximal femur and then confirmed the position in both AP and lateral planes. After confirming acceptable pin placement at the tip of the greater trochanter, the pin was advanced to the level of the lesser trochanter. An entry reamer was then utilized over the pin to open up the canal. A size 11 mm 130 degree Synthes TFNA short nail was then placed over the guide pin. The nail was then manually advanced to the appropriate depth taking care to avoid any further injury to the bone. When the nail was at the appropriate depth we used the outrigger to place a guidepin for the compression blade into the femoral head. The location of the pin was confirmed on both AP and lateral x-rays. The pin was overdrilled and a 80 mm blade was placed. The nail was locked proximally and the outrigger was utilized for compression across the fracture site. After confirming acceptable alignment of the fracture, we then used the outrigger to place a distal locking screw from lateral to medial. At this point we obtained final fluoroscopic images of the left hip and femur in both AP and lateral planes. The wound was then thoroughly irrigated and closed the IT band with 0 Vicryl. Subcutaneous tissue were closed with 2-0 strata fix, skin was closed with 3-0 strata fix and then zip line. Sterile dressing was placed, the patient was woken by anesthesia and taken transferred to PACU in stable condition. Patient tolerated procedure well with no issues. Postop plan: Patient will be transferred back to the floor and will be weight- bearing as tolerated of left lower extremity with physical therapy postoperatively. Patient is on subq heparin for DVT prophylaxis and will continue this per the hospitalist group. Was there an lpn or medical assistant present: No Estimated blood loss (cc): 100
--- NOTE | 2018-07-25 16:49 | Anesthesia Evaluation Post Op ---
Date of Encounter: 07/25/18 Time of Encounter: 15:55 - Discharge PostOp Status: Transfer Patient to floor (Patient's vital signs have been reviewed. Patient is stable postoperatively and has adequately recovered from anesthesia. Patient is determined to have stable airway patency and respiratory function including respiratory rate and oxygen saturation. Patient has a stable heart rate, blood pressure and adequate hydration. Patients mental status is acceptable. Patients temperature is appropriate. Pain and nausea are adequately controlled.)
--- NOTE | 2018-07-25 17:47 | Internal Med History&Physical ---
Date of Encounter: 07/25/18 Time of Encounter: 17:45 Internal Medicine - H&P: HPI Chief complaint: Acute intertrochanteric left hip fracture. Following a fall Admitted From: Long-term Nursing Facility History of present illness: Ms. Peña is a 82 year old female past medical history significant for CVA in the 90s, diabetes, GERD, hypertension, hyperlipidemia. Patient was brought to the emergency room from an assisted living facility following a fall. Patient states that she was walking in her living room and she TRIPPED With her recliner and fell. Reports that after following the fall, she heard a pop. The fall was followed by excruciating pain and difficulty getting up on the floor. For which she was brought to the emergency room. she also reports hitting her head, but denies loss of consciousness. Patient also denies lightheadedness, dizziness. Denies nausea, vomiting or headache following the fall. In the ED patient found to have an intertrochanteric left hip fracture for which the medicine team was called for admission. 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 Psychiatric history: no psych history - Past Surgical History Surgical History: appendectomy, cholecystectomy, hysterectomy Additional surgical history: Right ovary removed. - Social History Smoking Status: Former smoker Smokeless Tobacco Status: No Alcohol use: rarely Drug use: none - Family History Father History Unknown: Yes Living Status: Hx Family Cardiac Disorders: Yes Mother Adopted: [place]: Sissy Moses Age: 82 Family Member Ethnicity: Non- Living Status: Age at : 82 Cause of : Stroke/heart attack Hx Family Cardiac Disorders: Yes (Heart disease) Hx Family Neuromuscular Disorders: Yes Hx Family Neurologic Disorders: Yes ("Several Strokes") Internal Medicine - H&P: Meds Aspirin 81 mg PO DAILY 03/26/16 [History] Clopidogrel [Plavix] 75 mg PO DAILY 09/03/17 [History] amLODIPine [Norvasc] 10 mg PO DAILY #60 tablet 09/06/17 [Rx] Glimepiride [Amaryl] 2 mg PO DAILY 07/24/18 [History] Losartan Potassium [Cozaar] 50 mg PO DAILY 07/24/18 [History] Multivitamin [One Daily Essential] 1 tab PO DAILY 07/24/18 [History] Solifenacin Succinate [Vesicare] 10 mg PO DAILY 07/24/18 [History] Triamcinolone Acetonide [Nasacort] 1 puff NS DAILY 07/24/18 [History] Trospium Chloride 20 mg PO DAILY 07/24/18 [History] Vitamin B Complex/Folic Acid [Sm Vitamin B Complex Tablet] 0.4 mg PO DAILY 07/24 [History] raNITIdine HCl [Zantac] 150 mg PO BID 07/24/18 [History] 3 Allergy/AdvReac Type Severity Reaction Status Date / Time No Known Allergies Allergy Verified 07/24/18 22:25 All Systems PM: A 10-system review of systems was performed and is negative for pertinent findings except as documented above in the HPI. - Constitutional Constitutional: no anorexia, no chills, no falls, no weakness, no weight gain, no weight loss - EENT Eyes: no blurry vision, no change in vision, no loss of peripheral vision Nose, mouth and throat: no bleeding gums, no dysphagia, no facial pain, no mouth lesions, no sinus pressure - Cardiovascular Cardiovascular ROS IM: no chest pain, no diaphoresis, no dyspnea, no irregular heart rhythm, no lightheadedness, no orthopnea - Respiratory Respiratory: no cough, no dyspnea, no wheezing - Gastrointestinal Gastrointestinal: no belching, no change in bowel habits, no change in stool character, no coffee ground emesis, no dysphagia, no fecal incontinence - Genitourinary Genitourinary: no dysuria, no nocturia, no pelvic pain - Musculoskeletal Musculoskeletal ROS IM: no muscle cramps, no numbness, no stiffness - Integumentary Integumentary IM: no erythema - Neurological Neurological ROS: no abnormal gait, no abnormal speech, no frequent falls, no lack of coordination - Psychiatric Psychiatric: no anhedonia, no behavioral changes, no change in appetite - Endocrine Endocrine IM: no cold intolerance - Constitutional Vitals: Temp Pulse Resp BP Pulse Ox 97.6 F 85 18 107/70 91 07/25/18 17:14 07/25/18 17:14 07/25/18 17:14 07/25/18 17:14 07/25/18 17:14 Exam: General: Patient is alert, oriented, no acute distress, speaks in full sentences Head: atraumatic, normocephalic, Respiratory: Good respiratory effort. Clear to auscultation bilaterally, no wheezing or crackles. Cardiovascular: Normal s1 and s2 No rubs, gallops, or murmors. Abdomen: Bowel sounds present normoactive x-4 quadrants. Abdomen is soft, nondistended. No guarding or rebound. mid umbulical scar following a hysterectomy Musculoskeletal: No edema, no calf tenderness Neuro: Alert and oriented x4. Cranial nerves 2-12 is intact. Psych: Patient's affect is normal Internal Med - H&P Results - Labs CBC & Chem 7: 07/25/18 05:47 07/25/18 05:47 - Impressions ITS Impressions Fluoroscopy 07/25/18 14:00 IMPRESSION: Intraprocedural fluoroscopic spot images as above. See separate procedure report for more information. D/ / Kevin Devine MD / Kevin Devine MD Interpreting Provider: Kevin Devine MD Hip X-Ray 07/25/18 15:27 IMPRESSION: Postoperative change relating to ORIF of the left proximal femur. No evidence for acute complication is seen. D/ / 07/25/2018 15:51:46 Samuel Garcia MD / carina Interpreting Provider: Samuel Garcia MD - Assessment and plan (1) Intertrochanteric fracture of left femur Current Visit: Yes Status: Acute Assessment and plan: Traumatic. Following a fall at home. Plan: - Admit patient to medical floor - Ortho consulted - Pain control - Senna/Docussate stool softerner - PT/OT following surgery Qualifiers: Encounter type: initial encounter Fracture type: closed Fracture alignment: displaced Qualified Code(s): S72.142A - Displaced intertrochanteric fracture of left femur, initial encounter for closed fracture (2) Hypertension Current Visit: No Status: Chronic Assessment and plan: Plan: - Hold antihypertensive medication as blood pressure in the low 100s, and patient will be on multiple opioids for pain control. - Hydralazine 5mg/IV Q6HR PRN for SBP >190 Qualifiers: Hypertension type: essential hypertension Qualified Code(s): I10 - Essential (primary) hypertension (3) History of CVA (cerebrovascular accident) Current Visit: Yes Status: Acute Assessment and plan: Mild left sided weakness Plan: - PT/OT - On dual antiplatelets therapy, will continue home medication (4) Leukocytosis Current Visit: Yes Status: Acute Assessment and plan: Most likely reactive. Due to pain. No signs of active infection. Plan: - We will monitor for now. - Consider antibiotic therapy, if patient spikes a fever or WBC keeps trending up despite appropriate pain control Qualifiers: Leukocytosis type: unspecified Qualified Code(s): D72.829 - Elevated white blood cell count, unspecified (5) DVT prophylaxis Current Visit: No Status: Acute Assessment and plan: Chemical DVT prophylaxis with heparin 5000 unit subcutaneous every 12 hours. And mechanical DVT prophylaxis. (6) Diabetes Current Visit: Yes Status: Chronic Assessment and plan: Plan: - patient is nothing by mouth we will start lispro sliding scale, - We will adjust hypoglycemic medication after patient is on a diet Qualifiers: Diabetes mellitus type: type 2 Diabetes mellitus complication status: with unspecified complications Qualified Code(s): E11.8 - Type 2 diabetes mellitus with unspecified complications - Time Spent With Patient Total time spent is greater than 50% in coordination of care (as documented) at patient's floor/unit and/or counseling patient: Greater than 35 minutes - VTE Documentation of Mechanical Device: Venous foot pump, device
[2018-07-25] MEDS: Famotidine 20 MG TABLET PO SCH (20:44)
[2018-07-25] MEDS: Insulin LISPRO 300 UNITS/3 ML VIAL SQ SCH (21:26)
[2018-07-26 01:56] LABS: Alanine Aminotransferase 14 Units/L (7-52); Albumin 3.2 g/dL (3.5-5.7); Albumin/Globulin Ratio 1.5 (1.1-2.2); Alkaline Phosphatase 59 Units/L (34-104); Aspartate Amino Transferase 22 Units/L (13-39); BUN/Creatinine Ratio 18 (6-26); Bilirubin,Total 0.3 mg/dL (0.3-1.0); Blood Urea Nitrogen 16 mg/dL (8-23); Carbon Dioxide 25 mEq/L (23-29); Chloride 107 mEq/L (98-107); Globulin 2.2 g/dL (2.4-3.5); Glucose 106 mg/dL (70-105); Magnesium 1.9 mg/dL (1.6-2.6); Osmolality,Calculated 290 (280-300); Phosphorous 2.9 mg/dL (2.7-4.5); Potassium 3.9 mEq/L (3.5-5.1); Sodium 139 mEq/L (136-145); Total Protein 5.4 g/dL (6.4-8.9); eGFR For Non-African Americans 59 (> 60)
[2018-07-26] MEDS: *HR* Heparin 5,000 UNIT/ML VIAL SQ SCH ×3 (05:24→21:23)
[2018-07-26 06:28] LABS: Basophils # 0.1 K/mcL (0.0-0.2); Basophils % 0.4 %; Eosinophils # 0.1 K/mcL (0.0-0.6); Eosinophils % 0.4 %; Hematocrit 32.1 % (35.3-44.9); Hemoglobin 10.2 g/dL (11.5-15.4); Immature Granulocytes % 0.4 % (0-4); Lymphocytes # 3.4 K/mcL (0.6-4.6); Lymphocytes % 24.6 %; Mean Corpuscular HGB Conc 31.8 g/dL (31.6-35.5); Mean Corpuscular Hemoglobin 29.8 pg (28.0-33.3); Mean Corpuscular Volume 93.9 fL (83.0-100.0); Mean Platelet Volume 9.9 fL (9.4-12.4); Monocytes # 1.6 K/mcL (0.0-1.3); Monocytes % 11.4 %; Neutrophils # 8.8 K/mcL (1.6-8.9); Platelet Count 265 K/mcL (140-400); Red Blood Count 3.42 M/mcL (3.82-4.97); Red Cell Distribution Width 13.1 % (11.5-14.5); Segmented Neutrophils % 62.8 %
[2018-07-26] MEDS: Insulin LISPRO 300 UNITS/3 ML VIAL SQ SCH ×4 (07:30→21:23)
[2018-07-26] MEDS ORDERED: amLODIPine 5 MG TABLET PO SCH (09:00)
[2018-07-26] MEDS ORDERED: NON-FORMULARY MEDICATION 1 EACH EACH (Trospium Chloride [Trospium Chloride] 20 MG) PO SCH (09:00)
[2018-07-26] MEDS: Famotidine 20 MG TABLET PO SCH ×2 (09:04→21:23)
[2018-07-26] MEDS: Aspirin 81 MG TAB.CHEW PO SCH (09:04)
[2018-07-26] MEDS: Multivit/Ca/Min/Fe/FA 1 TAB TABLET PO SCH (09:04)
[2018-07-26] MEDS: Vitamin B Complex/Vit C/Vit E 1 EACH TABLET PO SCH (09:04)
[2018-07-26] MEDS: *HR* Glimepiride 2 MG TABLET PO SCH (09:04)
[2018-07-26] MEDS: Fluticasone Propionate Nasal 50 MCG/SPRAY BOTTLE NS SCH (09:05)
--- NOTE | 2018-07-26 11:13 | Orthopedics Progress Note ---
Date of Encounter: 07/26/18 Time of Encounter: 11:10 - Assessment and Plan (1) Intertrochanteric fracture of left femur Current Visit: Yes Status: Acute Qualifiers: Encounter type: initial encounter Fracture type: closed Fracture alignment: displaced Qualified Code(s): S72.142A - Displaced intertrochanteric fracture of left femur, initial encounter for closed fracture Subjective Interval history: Doing well with no overnight issues. Pain improved from preop. Denies CP, SOB. No numbness/tingling. No N/V. AFVSS Hgb 10.2 GEN: NAD, AAOx3 LLE: Dressing c/d/i DNVI with SILT s/s/t/sp/dp BCR over toes +EHL/PF/DF POD#1 s/p L hip nail WBAT with PT Continue DVT ppx per hospitalist - currently on heparin PO pain control Objective Vital signs: Vital Signs Temp Pulse Resp BP Pulse Ox 07/26/18 07:11 98.2 F 107 18 118/51 94 07/26/18 04:10 100.0 F H 90 16 116/68 97 07/26/18 00:02 98.0 F 91 12 108/70 95 07/25/18 19:34 97.5 F L 102 15 119/70 97 07/25/18 18:34 97.8 F 101 14 117/77 94 07/25/18 17:14 97.6 F 85 18 107/70 91 07/25/18 16:50 97.5 F L 88 18 117/78 91 07/25/18 16:20 97.7 F 98 15 122/77 90 07/25/18 16:00 98.9 F 95 13 106/70 94 07/25/18 15:50 98.9 F 98 14 126/81 92 07/25/18 15:40 97 13 122/81 92 07/25/18 15:30 101 14 133/82 96 07/25/18 15:20 98.9 F 108 16 112/87 95 Intake and Output 07/25/18 07/26/18 07/26/18 23:59 07:59 15:59 Intake Total 1100 / 1100 100 / 100 200 / 200 Output Total 500 / 500 Balance 1100 / 1100 -400 / -400 200 / 200 Intake: IV Fluids 1100 / 1100 100 / 100 0.9 % Sodium Chloride 1,000 ML 1000 / 1000 @ 75 mls/hr IVC .[id number] LUIS EDUARDO Rx #:[id number] Ancef 2,000 MG In 0.9 % Sodium 100 / 100 100 / 100 Chloride 100 ML @ 200 mls/hr IVPB Q8H [facility] Rx#:[id number] Oral 200 / 200 Output: Catheter 500 / 500 Other: Meal Breakfast Percent of Meal Consumed 30% Blood Glucose* 257 111 - Labs CBC & BMP: 07/26/18 05:10 07/26/18 01:09 Labs: Abnormal lab results WBC 14.0 K/mcL (4.3-11.1) H 07/26/18 05:10 RBC 3.42 M/mcL (3.82-4.97) L 07/26/18 05:10 Hgb 10.2 g/dL (11.5-15.4) L D 07/26/18 05:10 Hct 32.1 % (35.3-44.9) L 07/26/18 05:10 Monocytes # 1.6 K/mcL (0.0-1.3) H 07/26/18 05:10 Est GFR (Non-Af Amer) 59 (> 60) L 07/26/18 01:09 Glucose 106 mg/dL (70-105) H 07/26/18 01:09 POC Glucose 111 mg/dL (70-99) H 07/26/18 07:07 Calcium 8.0 mg/dL (8.6-10.3) L 07/26/18 01:09 Serum Total Protein 5.4 g/dL (6.4-8.9) L 07/26/18 01:09 Albumin 3.2 g/dL (3.5-5.7) L 07/26/18 01:09 Globulin 2.2 g/dL (2.4-3.5) L 07/26/18 01:09 - VTE Documentation of Mechanical Device: Intermittent pneumatic compression device Consult Discharge Plan - Plan Referrals: Amanda Headley MD [Primary Care Provider] -
--- NOTE | 2018-07-26 15:47 | Internal Med Progress Note ---
Hospitalist Progress Note - Encounter Date of Encounter: 07/26/18 Time of Encounter: 15:45 - Subjective Interval History: Patient seen and evaluated at Bedside, reports that she is feeling much better today but still complains of mild pain in the left lower extremity. Denies chest pain, shortness of breath, nausea, vomiting. No fever, no chills. No overnight event. - Exam Vitals: Temp Pulse Resp BP Pulse Ox 98.2 F 119 19 121/73 92 07/26/18 15:23 07/26/18 15:23 07/26/18 15:23 07/26/18 15:23 07/26/18 15:23 Exam: General: Patient is alert, oriented, no acute distress. Respiratory: Good respiratory effort. Clear to auscultation bilaterally, no wheezing or crackles. Cardiovascular: Normal s1 and s2 No rubs, gallops, or murmors. Abdomen: Bowel sounds present normoactive x-4 quadrants. Abdomen is soft, nondistended. No guarding or rebound. mid umbulical scar following a hysterectomy Musculoskeletal: No edema, no calf tenderness. Cleaned post surgical scar on the left lower extremity. Neuro: Alert and oriented x4. Cranial nerves 2-12 is intact. Psych: Patient's affect is normal - Assessment and Plan (1) Intertrochanteric fracture of left femur Current Visit: Yes Status: Acute Assessment and Plan: eft hip cephalomedullary nail Plan: - Plan of care as per orthopedic team recommendation. - Pain control with [place] 5-325, hydromorphone for breakthrough pain. - Educated about importance to cooperate with physical therapy, to determine the best place where she should go for rehabilitation. (2) Hypertension Current Visit: No Status: Chronic Assessment and Plan: Patient on losartan 50 mg as outpatient. Plan: - Will start losartan at 25mg daily will adjust based on BP over the next 24-48 hours (3) History of CVA (cerebrovascular accident) Current Visit: Yes Status: Acute Assessment and Plan: Continue with one antiplatelet therapy (4) Leukocytosis Current Visit: Yes Status: Acute Assessment and Plan: Patient had one episode of low-grade fever 100.0. Plan: - Received cefazolin for 24 hours. - We will continue to monitor, if she spikes a low-grade fever again we will start antibiotic therapy. (5) DVT prophylaxis Current Visit: No Status: Acute Assessment and Plan: Chemical DVT prophylaxis with heparin 5000 unit subcutaneous every 12 hours. And mechanical DVT prophylaxis. (6) Diabetes Current Visit: Yes Status: Chronic Assessment and Plan: Blood sugar well controlled. Plan: - Continue patient's home medication. (7) Anemia Current Visit: Yes Status: Acute Assessment and Plan: Plan: - Slight drop in H&h following surgery, surgical site clean - F/u am CBC - Time Spent with Patient Total time spent is greater than 50% in coordination of care (as documented) at patient's floor/unit and/or counseling patient: 25 - 35 minutes Plan of Care Discussed with: patient Internal Medicine: Result - Labs CBC & Chem 7: 07/26/18 05:10 07/26/18 01:09 Labs: Short CBC 07/26/18 Range/Units 05:10 WBC 14.0 H (4.3-11.1) K/mcL Hgb 10.2 L D (11.5-15.4) g/dL Hct 32.1 L (35.3-44.9) % Plt Count 265 (140-400) K/mcL Neutrophils # 8.8 (1.6-8.9) K/mcL BMP 07/26/18 01:09 Sodium 139 Potassium 3.9 Chloride 107 Carbon Dioxide 25 BUN 16 Creatinine 0.91 Glucose 106 H Calcium 8.0 L Liver Function 07/26/18 Range/Units 01:09 Total Bilirubin 0.3 (0.3-1.0) mg/dL AST 22 (13-39) Units/L ALT 14 (7-52) Units/L Alkaline Phosphatase 59 (34-104) Units/L Albumin 3.2 L (3.5-5.7) g/dL - ABG Interpretation ABG results: PT/INR, D-dimer PT 11.0 Seconds (9.4-12.1) 07/24/18 23:22 - Impressions Impressions Hip X-Ray 07/25/18 15:27 IMPRESSION: Postoperative change relating to ORIF of the left proximal femur. No evidence for acute complication is seen. D/ / 07/25/2018 15:51:46 Samuel Garcia MD / [email or web address] Interpreting Provider: Samuel Garcia MD - VTE Documentation of Mechanical Device: Intermittent pneumatic compression device Consult Discharge Plan - Plan Referrals: Amanda Headley MD [Primary Care Provider] - (1) Intertrochanteric fracture of left femur Qualifiers: Encounter type: initial encounter Fracture type: closed Fracture alignment: displaced Qualified Code(s): S72.142A - Displaced intertrochanteric fracture of left femur, initial encounter for closed fracture (2) Hypertension Qualifiers: Hypertension type: essential hypertension Qualified Code(s): I10 - Essential (primary) hypertension (4) Leukocytosis Qualifiers: Leukocytosis type: unspecified Qualified Code(s): D72.829 - Elevated white blood cell count, unspecified (6) Diabetes Qualifiers: Diabetes mellitus type: type 2 Diabetes mellitus complication status: with unspecified complications Qualified Code(s): E11.8 - Type 2 diabetes mellitus with unspecified complications (7) Anemia Qualifiers: Anemia type: unspecified type Qualified Code(s): D64.9 - Anemia, unspecified
[2018-07-26] MEDS: *HR* HYDROcodone/Acet 5/325 mg TABLET PO PRN (21:22)
[2018-07-27 02:49] LABS: Basophils # 0.1 K/mcL (0.0-0.2); Basophils % 0.5 %; Eosinophils % 0.3 %; Immature Granulocytes % 0.8 % (0-4); Lymphocytes # 2.8 K/mcL (0.6-4.6); Lymphocytes % 21.5 %; Mean Corpuscular HGB Conc 33.1 g/dL (31.6-35.5); Mean Corpuscular Hemoglobin 31.3 pg (28.0-33.3); Mean Corpuscular Volume 94.5 fL (83.0-100.0); Mean Platelet Volume 9.7 fL (9.4-12.4); Monocytes # 1.6 K/mcL (0.0-1.3); Monocytes % 11.9 %; Neutrophils # 8.5 K/mcL (1.6-8.9); Platelet Count 204 K/mcL (140-400); Red Blood Count 2.75 M/mcL (3.82-4.97)
[2018-07-27 02:52] LABS: Hemoglobin 8.6 g/dL (11.5-15.4)
[2018-07-27 03:12] LABS: BUN/Creatinine Ratio 18 (6-26); Blood Urea Nitrogen 16 mg/dL (8-23); Calcium 8.2 mg/dL (8.6-10.3); Carbon Dioxide 29 mEq/L (23-29); Chloride 108 mEq/L (98-107); Glucose 148 mg/dL (70-105); Magnesium 2.1 mg/dL (1.6-2.6); Osmolality,Calculated 296 (280-300); Potassium 3.5 mEq/L (3.5-5.1); Sodium 141 mEq/L (136-145); eGFR For Non-African Americans 59 (> 60)
[2018-07-27] MEDS: *HR* FentaNYL (PF) 100 MCG/2 ML VIAL IVP PRN ×2 (04:16→15:01)
[2018-07-27] MEDS: *HR* Heparin 5,000 UNIT/ML VIAL SQ SCH ×3 (05:42→21:08)
[2018-07-27] MEDS: Insulin LISPRO 300 UNITS/3 ML VIAL SQ SCH ×4 (07:36→21:08)
[2018-07-27] MEDS ORDERED: cefTRIAXone 1,000 MG in Water for inj. (sterile) 20 ML 10 ML IVP SCH (09:00)
[2018-07-27] MEDS: Aspirin 81 MG TAB.CHEW PO SCH (09:21)
[2018-07-27] MEDS: Vitamin B Complex/Vit C/Vit E 1 EACH TABLET PO SCH (09:21)
[2018-07-27] MEDS: *HR* Glimepiride 2 MG TABLET PO SCH (09:21)
[2018-07-27] MEDS: Multivit/Ca/Min/Fe/FA 1 TAB TABLET PO SCH (09:21)
[2018-07-27] MEDS: Fluticasone Propionate Nasal 50 MCG/SPRAY BOTTLE NS SCH (09:23)
[2018-07-27] MEDS: *HR* HYDROcodone/Acet 5/325 mg TABLET PO PRN ×2 (09:25→23:28)
--- NOTE | 2018-07-27 10:48 | Physician Discharge Referral ---
- Diagnosis (1) Intertrochanteric fracture of left femur Status: Acute Prognosis: Fair - Transfer Medications Home Medications: Aspirin 81 mg PO DAILY 03/26/16 [History] Clopidogrel [Plavix] 75 mg PO DAILY 09/03/17 [History] amLODIPine [Norvasc] 10 mg PO DAILY #60 tablet 09/06/17 [Rx] Glimepiride [Amaryl] 2 mg PO DAILY 07/24/18 [History] Losartan Potassium [Cozaar] 50 mg PO DAILY 07/24/18 [History] Multivitamin [One Daily Essential] 1 tab PO DAILY 07/24/18 [History] Solifenacin Succinate [Vesicare] 10 mg PO DAILY 07/24/18 [History] Triamcinolone Acetonide [Nasacort] 1 puff NS DAILY 07/24/18 [History] Trospium Chloride 20 mg PO DAILY 07/24/18 [History] Vitamin B Complex/Folic Acid [Sm Vitamin B Complex Tablet] 0.4 mg PO DAILY 07/24 [History] raNITIdine HCl [Zantac] 150 mg PO BID 07/24/18 [History] Allergies/Adverse Reactions: 3 Allergy/AdvReac Type Severity Reaction Status Date / Time No Known Allergies Allergy Verified 07/24/18 22:25 - Respiratory Orders Smoking Cessation: Smoking cessation has been advised. For more information, call the [employer] Tobacco Quit Line at 2-464-SEFJ-NOW. - Mobility Orders Ambulate - Rehabiliation Orders Rehab Potential: Fair Rehab Orders: ROM Exercises, Evaluation for Physical Therapy, Evaluation for Occupational Therapy Other: SHELTER DISCHARGE INSTRUCTIONS Dr. Malloy PROCEDURE PERFORMED Reduction and fixation of the hip. Incision care -Keep clear dressing in place. If dressing becomes saturated, may perform daily dressing changes to the hip with dry gauze and either paper tape or medipore tape. -Avoid soaking wound in water (no hot tubs, bathtubs, swimming pools). -May shower after 2 weeks from surgery date. Carefully wash incision with soap and water. Gently pat it dry. Don't rub the incision, or apply creams or lotions. Sit on a shower stool when showering to keep from falling. Weight bearing status -Weightbearing as tolerated to the bilateral lower extremities. Medications -Pain medication per the discharging medical doctor -Enteric coated aspirin 325 mg by mouth twice per day for 28 days from the date of the surgery. [-Resume 50,000 units of vitamin D2 weekly and 1200 mg of calcium supplementation per day.] Other -Knee high LOUISE hose 23 hours per day -Consult physical and occupational therapy for mobilization. -Up to chair with assistance at least twice per day. -Follow up with your primary care physician to discuss testing for bone mineral density. Follow-Up -Follow-up with Dr. Malloy in office in 2 weeks from the surgery date for a post-operative evaluation. -Call the office at [phone] to schedule or confirm your appointment. -Follow up with your primary care physician to discuss testing for bone mineral density. - Diet Orders Regular CERTIFICATION: I certify that the transfer of the above named patient to an Extended Care Facility is necessary for the continuing treatment of the diagnosis listed. The above information is true and accurate reflection of patient's current condition. Confidential - Redisclosure prohibited without a patient's written consent.
--- NOTE | 2018-07-27 12:42 | Orthopedics Progress Note ---
Date of Encounter: 07/27/18 Time of Encounter: 12:42 - Assessment and Plan (1) Intertrochanteric fracture of left femur Current Visit: Yes Status: Acute Qualifiers: Encounter type: initial encounter Fracture type: closed Fracture alignment: displaced Qualified Code(s): S72.142A - Displaced intertrochanteric fracture of left femur, initial encounter for closed fracture Subjective Interval history: Doing well with no overnight issues. Pain improved from preop. Denies CP, SOB. No numbness/tingling. No N/V. AFVSS Hgb 8.6 GEN: NAD, AAOx3 LLE: Dressing c/d/i DNVI with SILT s/s/t/sp/dp BCR over toes +EHL/PF/DF POD#2 s/p L hip nail WBAT with PT Continue DVT ppx per hospitalist - currently on heparin PO pain control Objective Vital signs: Vital Signs Temp Pulse Resp BP Pulse Ox 07/27/18 11:24 98.4 F 113 18 119/71 95 07/27/18 10:01 98 07/27/18 06:58 99.0 F 111 20 111/66 98 07/27/18 04:27 98.3 F 102 16 112/75 95 07/26/18 23:48 98.5 F 117 16 116/72 95 07/26/18 22:34 98.8 F 119 16 113/77 95 07/26/18 21:09 100.9 F H 130 18 123/88 95 07/26/18 15:23 98.2 F 119 19 121/73 92 Intake and Output 07/26/18 07/27/18 07/27/18 23:59 07:59 15:59 Other: # Urine Diapers 1 1 Blood Glucose* 126 109 180 - Labs CBC & BMP: 07/27/18 01:51 07/27/18 01:51 Labs: Abnormal lab results WBC 13.1 K/mcL (4.3-11.1) H 07/27/18 01:51 RBC 2.75 M/mcL (3.82-4.97) L 07/27/18 01:51 Hgb 8.6 g/dL (11.5-15.4) L D 07/27/18 01:51 Hct 26.0 % (35.3-44.9) L 07/27/18 01:51 Monocytes # 1.6 K/mcL (0.0-1.3) H 07/27/18 01:51 Chloride 108 mEq/L (98-107) H 07/27/18 01:51 Est GFR (Non-Af Amer) 59 (> 60) L 07/27/18 01:51 Glucose 148 mg/dL (70-105) H 07/27/18 01:51 POC Glucose 126 mg/dL (70-99) H 07/26/18 21:08 Calcium 8.2 mg/dL (8.6-10.3) L 07/27/18 01:51 Serum Total Protein 5.4 g/dL (6.4-8.9) L 07/26/18 01:09 Albumin 3.2 g/dL (3.5-5.7) L 07/26/18 01:09 Globulin 2.2 g/dL (2.4-3.5) L 07/26/18 01:09 - VTE Documentation of Mechanical Device: Intermittent pneumatic compression device Consult Discharge Plan - Plan Referrals: Amanda Headley MD [Primary Care Provider] -
--- NOTE | 2018-07-27 14:33 | Internal Med Progress Note ---
Hospitalist Progress Note - Encounter Date of Encounter: 07/27/18 Time of Encounter: 14:29 - Subjective Interval History: Patient seen and evaluated at Bedside, reports doing well, denies hip pain but reports that was having some back pain. Denies fver, chills, no chest pain or productive cough. No blood in the stool, denies lightheadedness. - Exam Vitals: Temp Pulse Resp BP Pulse Ox 98.4 F 113 18 119/71 95 07/27/18 11:24 07/27/18 11:24 07/27/18 11:24 07/27/18 11:24 07/27/18 11:24 Exam: General: Patient is alert, oriented, no acute distress. Respiratory: Good respiratory effort. Clear to auscultation bilaterally, no wheezing or crackles. Cardiovascular: Normal s1 and s2 No rubs, gallops, or murmors. Abdomen: Bowel sounds present normoactive. Abdomen is soft, nondistended. No guarding or rebound. mid umbulical scar following a hysterectomy Musculoskeletal: No edema, no calf tenderness. Neuro: Cranial nerves 2-12 is intact. Psych: Patient's affect is normal - Assessment and Plan (1) Intertrochanteric fracture of left femur Current Visit: Yes Status: Acute Assessment and Plan: Plan: - Pain control - PT/OT - Patient medically cleared to go to rehabilitation pending insurance approval (2) Hypertension Current Visit: No Status: Chronic Assessment and Plan: BP well controlled Plan: - On losartan 25 mg daily (3) History of CVA (cerebrovascular accident) Current Visit: Yes Status: Acute Assessment and Plan: Continue with aspirin and Plavix (4) Leukocytosis Current Visit: Yes Status: Acute Assessment and Plan: Low-grade fever. Tachycardia, possible due to pain. Plan: - We will start patient on empiric antibiotic therapy. Due to high risk of sepsis. (5) Diabetes Current Visit: Yes Status: Chronic Assessment and Plan: Blood sugar well controlled. Plan: - Continue patient's home medications (6) Anemia Current Visit: Yes Status: Acute Assessment and Plan: Unclear etiology. Possible due to acute blood loss post op. Plan: - AM CBC - Will consider transfusing if Hb <7 Ht<23 or patient becomes symptomatic (7) DVT prophylaxis Current Visit: No Status: Acute Assessment and Plan: Continue chemical DVT prophylaxis - Summary of Assessment and Plan Summary of Assessment and Plan: Patient medically cleared to be transferred to rehabilitation. Pending insurance approval - Time Spent with Patient Total time spent is greater than 50% in coordination of care (as documented) at patient's floor/unit and/or counseling patient: 25 - 35 minutes Plan of Care Discussed with: patient (and the nurse.) Internal Medicine: Result - Labs CBC & Chem 7: 07/27/18 01:51 07/27/18 01:51 Labs: Short CBC 07/27/18 Range/Units 01:51 WBC 13.1 H (4.3-11.1) K/mcL Hgb 8.6 L D (11.5-15.4) g/dL Hct 26.0 L (35.3-44.9) % Plt Count 204 (140-400) K/mcL Neutrophils # 8.5 (1.6-8.9) K/mcL BMP 07/27/18 01:51 Sodium 141 Potassium 3.5 Chloride 108 H Carbon Dioxide 29 BUN 16 Creatinine 0.91 Glucose 148 H Calcium 8.2 L - ABG Interpretation ABG results: PT/INR, D-dimer PT 11.0 Seconds (9.4-12.1) 07/24/18 23:22 - VTE Documentation of Mechanical Device: Intermittent pneumatic compression device Consult Discharge Plan - Plan Referrals: Amanda Headley MD [Primary Care Provider] - (1) Intertrochanteric fracture of left femur Qualifiers: Encounter type: initial encounter Fracture type: closed Fracture alignment: displaced Qualified Code(s): S72.142A - Displaced intertrochanteric fracture of left femur, initial encounter for closed fracture (2) Hypertension Qualifiers: Hypertension type: essential hypertension Qualified Code(s): I10 - Essential (primary) hypertension (4) Leukocytosis Qualifiers: Leukocytosis type: unspecified Qualified Code(s): D72.829 - Elevated white blood cell count, unspecified (5) Diabetes Qualifiers: Diabetes mellitus type: type 2 Diabetes mellitus complication status: with unspecified complications Qualified Code(s): E11.8 - Type 2 diabetes mellitus with unspecified complications (6) Anemia Qualifiers: Anemia type: unspecified type Qualified Code(s): D64.9 - Anemia, unspecified
[2018-07-27] MEDS: Famotidine 20 MG TABLET PO SCH (21:08)
[2018-07-28] MEDS ORDERED: *HR* Metoprolol 5 MG/5 ML VIAL IVP ONE (00:11)
[2018-07-28] MEDS: *HR* FentaNYL (PF) 100 MCG/2 ML VIAL IVP PRN (00:28)
[2018-07-28 04:45] LABS: Basophils # 0.1 K/mcL (0.0-0.2); Basophils % 0.5 %; Eosinophils # 0.1 K/mcL (0.0-0.6); Eosinophils % 0.9 %; Hemoglobin 8.7 g/dL (11.5-15.4); Immature Granulocytes % 1.8 % (0-4); Lymphocytes # 2.5 K/mcL (0.6-4.6); Lymphocytes % 16.9 %; Mean Corpuscular HGB Conc 33.5 g/dL (31.6-35.5); Mean Corpuscular Hemoglobin 31.6 pg (28.0-33.3); Mean Corpuscular Volume 94.5 fL (83.0-100.0); Mean Platelet Volume 9.6 fL (9.4-12.4); Monocytes # 1.2 K/mcL (0.0-1.3); Monocytes % 8.4 %; Neutrophils # 10.5 K/mcL (1.6-8.9); Nucleated Red Blood Cells 0.2 /100 WBC (0); Platelet Count 239 K/mcL (140-400); Red Blood Count 2.75 M/mcL (3.82-4.97); Red Cell Distribution Width 12.7 % (11.5-14.5); Segmented Neutrophils % 71.5 %
[2018-07-28 04:57] LABS: BUN/Creatinine Ratio 19 (6-26); Blood Urea Nitrogen 17 mg/dL (8-23); Calcium 8.4 mg/dL (8.6-10.3); Carbon Dioxide 29 mEq/L (23-29); Chloride 104 mEq/L (98-107); Glucose 161 mg/dL (70-105); Magnesium 2.2 mg/dL (1.6-2.6); Osmolality,Calculated 295 (280-300); Potassium 3.6 mEq/L (3.5-5.1); Sodium 140 mEq/L (136-145); eGFR For Non-African Americans > 60 (> 60)
[2018-07-28] MEDS: *HR* Heparin 5,000 UNIT/ML VIAL SQ SCH ×3 (05:39→22:57)
[2018-07-28] MEDS: Insulin LISPRO 300 UNITS/3 ML VIAL SQ SCH ×4 (07:36→20:58)
[2018-07-28] MEDS: Aspirin 81 MG TAB.CHEW PO SCH (10:05)
[2018-07-28] MEDS: Multivit/Ca/Min/Fe/FA 1 TAB TABLET PO SCH (10:05)
[2018-07-28] MEDS: *HR* Glimepiride 2 MG TABLET PO SCH (10:05)
[2018-07-28] MEDS: Vitamin B Complex/Vit C/Vit E 1 EACH TABLET PO SCH (10:05)
[2018-07-28] MEDS: Fluticasone Propionate Nasal 50 MCG/SPRAY BOTTLE NS SCH (10:06)
--- NOTE | 2018-07-28 14:37 | Internal Med Progress Note ---
Hospitalist Progress Note - Encounter Date of Encounter: 07/28/18 Time of Encounter: 14:35 - Subjective Interval History: evaluated at bedside, reports doing well, but recalls that last night after Rehab she was having severe pain in the lower extremity. Denies chest pain, or shortness of breath but report that last night had a couple of episodes of productive cough of clear sputum. No fever, chills. - Exam Vitals: Temp Pulse Resp BP Pulse Ox 98.4 F 110 16 137/73 95 07/28/18 11:00 07/28/18 11:00 07/28/18 11:00 07/28/18 11:00 07/28/18 11:00 Exam: General: Patient is alert, oriented, no acute distress. Respiratory: Clear to auscultation bilaterally, no wheezing or crackles. Cardiovascular: Normal s1 and s2 No rubs, gallops, or murmors. Abdomen: Bowel sounds present normoactive. Abdomen is soft, nondistended. No guarding or rebound. mid umbulical scar following a hysterectomy Musculoskeletal: No edema, no calf tenderness. Neuro: Cranial nerves 2-12 is intact. Psych: Patient's affect is normal - Assessment and Plan (1) Intertrochanteric fracture of left femur Current Visit: Yes Status: Acute Assessment and Plan: Left hip cephalomedullary nail Plan: - To continue with Pain control on [place] 5-325mg and tramadol 50 mg/PO every 6 hours when necessary - PT/OT daily - Incentive spirometry. (2) Hypertension Current Visit: No Status: Chronic Assessment and Plan: Blood pressure well-controlled. Plan: - Continue losartan 25 mg daily. - Hydralazine 5 mg IV push every 6 hours when necessary for systolic blood pressure more than 190 (3) History of CVA (cerebrovascular accident) Current Visit: Yes Status: Acute Assessment and Plan: Continue with aspirin and Plavix (4) Leukocytosis Current Visit: Yes Status: Acute Assessment and Plan: WBC of 14.1 today, low-grade fever. Tachycardia. Plan: - We will continue empiric antibiotic coverage for at least 24 more hours. - Follow up UA. (5) Diabetes Current Visit: Yes Status: Chronic Assessment and Plan: Blood sugar well controlled Plan: - On glimiperide 2mg PO daily -Continue lispro low-dose sliding scale. (6) Anemia Current Visit: Yes Status: Acute Assessment and Plan: Unclear etiology. Possible due to acute blood loss post op. Plan: - No active signs of bleeding. - F/U cbc in the morning - Will consider transfusing if Hb <7 Ht<23 or patient becomes symptomatic (7) DVT prophylaxis Current Visit: No Status: Acute Assessment and Plan: chemical DVT prophylaxis with Heparin 5000 units SubQ Q12HRs - Summary of Assessment and Plan Summary of Assessment and Plan: Pending insurance authorization for placement. - Time Spent with Patient Total time spent is greater than 50% in coordination of care (as documented) at patient's floor/unit and/or counseling patient: 25 - 35 minutes Plan of Care Discussed with: patient (and the nurse) Internal Medicine: Result - Labs CBC & Chem 7: 07/28/18 04:02 07/28/18 04:02 Labs: Short CBC 07/28/18 Range/Units 04:02 WBC 14.6 H (4.3-11.1) K/mcL Hgb 8.7 L (11.5-15.4) g/dL Hct 26.0 L (35.3-44.9) % Plt Count 239 (140-400) K/mcL Neutrophils # 10.5 H (1.6-8.9) K/mcL BMP 07/28/18 04:02 Sodium 140 Potassium 3.6 Chloride 104 Carbon Dioxide 29 BUN 17 Creatinine 0.89 Glucose 161 H Calcium 8.4 L - ABG Interpretation ABG results: PT/INR, D-dimer PT 11.0 Seconds (9.4-12.1) 07/24/18 23:22 - VTE Documentation of Mechanical Device: Intermittent pneumatic compression device Consult Discharge Plan - Plan Referrals: Amanda Headley MD [Primary Care Provider] - (1) Intertrochanteric fracture of left femur Qualifiers: Encounter type: initial encounter Fracture type: closed Fracture alignment: displaced Qualified Code(s): S72.142A - Displaced intertrochanteric fracture of left femur, initial encounter for closed fracture (2) Hypertension Qualifiers: Hypertension type: essential hypertension Qualified Code(s): I10 - Essential (primary) hypertension (4) Leukocytosis Qualifiers: Leukocytosis type: unspecified Qualified Code(s): D72.829 - Elevated white blood cell count, unspecified (5) Diabetes Qualifiers: Diabetes mellitus type: type 2 Diabetes mellitus complication status: with unspecified complications Qualified Code(s): E11.8 - Type 2 diabetes mellitus with unspecified complications (6) Anemia Qualifiers: Anemia type: unspecified type Qualified Code(s): D64.9 - Anemia, unspecified
[2018-07-28] MEDS: Piperacillin/Tazobactam 3.375 GM in 0.9 % Sodium Chloride Mini Bag 100 ML IVPB SCH (16:52)
[2018-07-28] MEDS: Famotidine 20 MG TABLET PO SCH (20:58)
[2018-07-28] MEDS: *HR* HYDROcodone/Acet 5/325 mg TABLET PO PRN (21:04)
[2018-07-28 21:20] LABS: Bilirubin,Urine Negative (Negative); Blood,Urine Negative (Negative); Clarity,Urine Clear (Clear); Color,Urine Yellow (Yellow); Glucose,Urine (UA) Normal (Normal); Ketones,Urine Negative (Negative); Leukocyte Esterase,Urine Negative (Negative); Nitrite,Urine Negative (Negative); PH,Urine 6.5 pH Units (5.0-8.0); Protein,Urine Negative (Neg-Trace); Specific Gravity,Urine 1.012 (1.010-1.025); Urobilinogen,Urine Normal (Normal)
[2018-07-29] MEDS: Piperacillin/Tazobactam 3.375 GM in 0.9 % Sodium Chloride Mini Bag 100 ML IVPB SCH ×2 (00:18→07:44)
[2018-07-29] MEDS ORDERED: Melatonin 3 MG TABLET PO ONE (00:53)
[2018-07-29 01:00] LABS: Basophils # 0.1 K/mcL (0.0-0.2); Basophils % 0.4 %; Eosinophils # 0.4 K/mcL (0.0-0.6); Eosinophils % 3.2 %; Hemoglobin 7.9 g/dL (11.5-15.4); Immature Granulocytes % 2.1 % (0-4); Lymphocytes # 3.5 K/mcL (0.6-4.6); Mean Corpuscular HGB Conc 32.9 g/dL (31.6-35.5); Mean Corpuscular Hemoglobin 30.9 pg (28.0-33.3); Mean Corpuscular Volume 93.8 fL (83.0-100.0); Mean Platelet Volume 9.5 fL (9.4-12.4); Monocytes # 1.4 K/mcL (0.0-1.3); Monocytes % 10.1 %; Neutrophils # 7.8 K/mcL (1.6-8.9); Nucleated Red Blood Cells 0.4 /100 WBC (0); Platelet Count 285 K/mcL (140-400); Red Blood Count 2.56 M/mcL (3.82-4.97); Red Cell Distribution Width 12.7 % (11.5-14.5); Segmented Neutrophils % 58.2 %
[2018-07-29] MEDS: *HR* Heparin 5,000 UNIT/ML VIAL SQ SCH (06:28)
[2018-07-29] MEDS: *HR* HYDROcodone/Acet 5/325 mg TABLET PO PRN ×2 (06:41→16:54)
[2018-07-29] MEDS: *HR* Glimepiride 2 MG TABLET PO SCH (07:43)
[2018-07-29] MEDS: Multivit/Ca/Min/Fe/FA 1 TAB TABLET PO SCH (07:43)
[2018-07-29] MEDS: Aspirin 81 MG TAB.CHEW PO SCH (07:43)
[2018-07-29] MEDS: Vitamin B Complex/Vit C/Vit E 1 EACH TABLET PO SCH (07:43)
[2018-07-29] MEDS: Insulin LISPRO 300 UNITS/3 ML VIAL SQ SCH ×4 (07:45→20:25)
[2018-07-29] MEDS: Fluticasone Propionate Nasal 50 MCG/SPRAY BOTTLE NS SCH (07:46)
[2018-07-29] MEDS ORDERED: Aspirin 81 MG TAB.CHEW PO SCH (08:19)
--- NOTE | 2018-07-29 09:52 | Orthopedics Progress Note ---
Date of Encounter: 07/29/18 Time of Encounter: 09:50 - Assessment and Plan (1) Intertrochanteric fracture of left femur Current Visit: Yes Status: Acute Qualifiers: Encounter type: initial encounter Fracture type: closed Fracture alignment: displaced Qualified Code(s): S72.142A - Displaced intertrochanteric fracture of left femur, initial encounter for closed fracture Subjective Interval history: S: Sitting up in bed comfortably Pain well-controlled to the left hip O: Afebrile on the vital signs are stable Left hip dressing is clean, dry, and intact Mild expected pain with passive motion of the left hip Neurovascularly intact distally Hemoglobin noted A: Left hip nailing Acute blood loss anemia from surgery P: Continue therapy Aspirin for DVT prophylaxis Scheduled for [facility] tomorrow Objective Vital signs: Vital Signs Temp Pulse Resp BP Pulse Ox 07/29/18 08:01 99 07/29/18 07:28 99.0 F 77 16 123/75 99 07/29/18 03:59 98.1 F 96 16 128/75 93 07/28/18 23:42 99.6 F 105 17 116/70 93 07/28/18 20:31 99.8 F H 110 16 126/79 93 07/28/18 14:45 98.4 F 106 18 126/67 96 07/28/18 11:00 98.4 F 110 16 137/73 95 07/28/18 10:18 93 Intake and Output 07/28/18 07/29/18 07/29/18 23:59 07:59 15:59 Intake Total 300 / 300 200 / 200 Balance 300 / 300 200 / 200 Intake: IV Fluids 100 / 100 100 / 100 Zosyn 3.375 GM In 0.9 % Sodium 100 / 100 100 / 100 Chloride (Mini-Bag +) 100 ML @ 25 mls/hr IVPB Q8HR LUIS EDUARDO Rx#: [id number] Oral 200 / 200 100 / 100 Other: # Voids 2 # Urine Diapers 1 1 Blood Glucose* 151 117 - Labs CBC & BMP: 07/29/18 00:42 07/28/18 04:02 Labs: Abnormal lab results WBC 13.4 K/mcL (4.3-11.1) H 07/29/18 00:42 RBC 2.56 M/mcL (3.82-4.97) L 07/29/18 00:42 Hgb 7.9 g/dL (11.5-15.4) L 07/29/18 00:42 Hct 24.0 % (35.3-44.9) L 07/29/18 00:42 Monocytes # 1.4 K/mcL (0.0-1.3) H 07/29/18 00:42 Nucleated RBCs/100 WBC 0.4 /100 WBC (0) H 07/29/18 00:42 Glucose 161 mg/dL (70-105) H 07/28/18 04:02 POC Glucose 117 mg/dL (70-99) H 07/29/18 07:26 Calcium 8.4 mg/dL (8.6-10.3) L 07/28/18 04:02 Serum Total Protein 5.4 g/dL (6.4-8.9) L 07/26/18 01:09 Albumin 3.2 g/dL (3.5-5.7) L 07/26/18 01:09 Globulin 2.2 g/dL (2.4-3.5) L 07/26/18 01:09 - VTE Documentation of Mechanical Device: Intermittent pneumatic compression device Consult Discharge Plan - Plan Referrals: Amanda Headley MD [Primary Care Provider] -
[2018-07-29] MEDS: cefTRIAXone 1,000 MG in Water for inj. (sterile) 20 ML 10 ML IVP SCH (11:21)
[2018-07-29] MEDS: Aspirin Enteric Coated 325 MG Tablet PO SCH (11:28)
--- NOTE | 2018-07-29 14:34 | Internal Med Progress Note ---
Hospitalist Progress Note - Encounter Date of Encounter: 07/29/18 Time of Encounter: 14:32 - Subjective Interval History: Patient seen and evaluated at bedside, she reports doing well. Denies hip pain, chest pain or lightheadedness. No overnight event. Afebrile, no chills. - Exam Vitals: Temp Pulse Resp BP Pulse Ox 99.0 F 77 16 123/75 99 07/29/18 07:28 07/29/18 07:28 07/29/18 07:28 07/29/18 07:28 07/29/18 08:01 Exam: General: Patient is alert, oriented x4, no acute distress. Respiratory: Clear to auscultation bilaterally, no wheezing or crackles. Cardiovascular: Normal s1 and s2 No rubs, gallops, or murmors. Abdomen: Bowel sounds present normoactive. No guarding or rebound. mid umbulical scar following a hysterectomy Musculoskeletal: No edema, no calf tenderness. Neuro: Cranial nerves 2-12 is intact. Psych: Patient's affect is normal - Assessment and Plan (1) Intertrochanteric fracture of left femur Current Visit: Yes Status: Acute Assessment and Plan: Left hip cephalomedullary nail. pain well controlled. Plan: - on [place] 5-325mg, Dilaudid and tramadol 50 mg/PO every 6 hours when necessary for pain control - PT/OT daily - Incentive spirometry. - Patient pending insurance authorization to be transferred to rehab. (2) Hypertension Current Visit: No Status: Chronic Assessment and Plan: BP well controlled. Plan: Continue carvedilol 6.25mg/PO BID On Losartan 25mg PO daily (3) History of CVA (cerebrovascular accident) Current Visit: Yes Status: Acute Assessment and Plan: Continue dual antiplatelet therapy. (4) Leukocytosis Current Visit: Yes Status: Acute Assessment and Plan: Most likely reactive, due to pain pain. No fever, no chills. Plan: - Continue empiric antibiotic therapy for 24 more hours. (5) Diabetes Current Visit: Yes Status: Chronic Assessment and Plan: Blood sugar well controlled. To continue patient home medication glimiperide and Lispro sliding scale. (6) Anemia Current Visit: Yes Status: Acute Assessment and Plan: Possible secondary to acute blood loss anemia postop. slight H&H today. Patient hemodynamically stable. Plan: - We will continue monitoring H&H - Follow up a.m. CBC. - Surgical site clean, no signs of bleeding - We will consider transfusing 1 PRBC if hb <7 Hct <23 or patient become symptomatic. (7) DVT prophylaxis Current Visit: No Status: Acute Assessment and Plan: On aspirin 325 daily for DVT prophylaxis. - Summary of Assessment and Plan Summary of Assessment and Plan: Patient is pending insurance authorization for transfer to rehabilitation facility. - Time Spent with Patient Total time spent is greater than 50% in coordination of care (as documented) at patient's floor/unit and/or counseling patient: Greater than 35 minutes Plan of Care Discussed with: patient (and the nurse.) Internal Medicine: Result - Labs CBC & Chem 7: 07/29/18 00:42 07/28/18 04:02 Labs: Short CBC 07/29/18 Range/Units 00:42 WBC 13.4 H (4.3-11.1) K/mcL Hgb 7.9 L (11.5-15.4) g/dL Hct 24.0 L (35.3-44.9) % Plt Count 285 (140-400) K/mcL Neutrophils # 7.8 (1.6-8.9) K/mcL Urine 07/28/18 Range/Units 21:10 Urine Color Yellow (Yellow) Urine Clarity Clear (Clear) Urine pH 6.5 (5.0-8.0) pH Units Ur Specific [place] 1.012 (1.010-1.025) Urine Protein Negative (Neg-Trace) mg/dL Urine Glucose (UA) Normal (Normal) mg/dL - ABG Interpretation ABG results: PT/INR, D-dimer PT 11.0 Seconds (9.4-12.1) 07/24/18 23:22 - VTE Documentation of Mechanical Device: Intermittent pneumatic compression device Consult Discharge Plan - Plan Referrals: Amanda Headley MD [Primary Care Provider] - (1) Intertrochanteric fracture of left femur Qualifiers: Encounter type: initial encounter Fracture type: closed Fracture alignment: displaced Qualified Code(s): S72.142A - Displaced intertrochanteric fracture of left femur, initial encounter for closed fracture (2) Hypertension Qualifiers: Hypertension type: essential hypertension Qualified Code(s): I10 - Essential (primary) hypertension (4) Leukocytosis Qualifiers: Leukocytosis type: unspecified Qualified Code(s): D72.829 - Elevated white blood cell count, unspecified (5) Diabetes Qualifiers: Diabetes mellitus type: type 2 Diabetes mellitus complication status: with unspecified complications Qualified Code(s): E11.8 - Type 2 diabetes mellitus with unspecified complications (6) Anemia Qualifiers: Anemia type: unspecified type Qualified Code(s): D64.9 - Anemia, unspecified
[2018-07-29] MEDS: Famotidine 20 MG TABLET PO SCH (20:29)
--- NOTE | 2018-07-29 21:11 | Event Note ---
Date of Encounter: 07/29/18 Time of Encounter: 21:08 Patient apparently had a hgb of 7.9 and hct of 24 last night. The patient is to be transfused 1 unit PBRCs if hgb falls below 7.0, or his hct less than 23. Awaiting results.
[2018-07-29 21:53] LABS: Hematocrit 25.4 % (35.3-44.9); Hemoglobin 8.2 g/dL (11.5-15.4)
--- NOTE | 2018-07-29 22:00 | Event Note ---
Date of Encounter: 07/29/18 Time of Encounter: 21:59 Patient remains asymptomatic. Hgb is now 8.2, hct is 25.4. Will continue to monitor.
[2018-07-30 01:35] LABS: Basophils # 0.1 K/mcL (0.0-0.2); Basophils % 0.6 %; Eosinophils # 0.7 K/mcL (0.0-0.6); Eosinophils % 5.7 %; Hematocrit 22.6 % (35.3-44.9); Hemoglobin 7.2 g/dL (11.5-15.4); Immature Granulocytes % 2.5 % (0-4); Lymphocytes # 3.8 K/mcL (0.6-4.6); Lymphocytes % 28.8 %; Mean Corpuscular HGB Conc 31.9 g/dL (31.6-35.5); Mean Corpuscular Hemoglobin 30.3 pg (28.0-33.3); Mean Platelet Volume 9.4 fL (9.4-12.4); Monocytes # 1.3 K/mcL (0.0-1.3); Monocytes % 9.8 %; Neutrophils # 6.9 K/mcL (1.6-8.9); Nucleated Red Blood Cells 0.7 /100 WBC (0); Platelet Count 306 K/mcL (140-400); Red Blood Count 2.38 M/mcL (3.82-4.97); Red Cell Distribution Width 13.2 % (11.5-14.5); Segmented Neutrophils % 52.6 %
[2018-07-30 01:55] LABS: Calcium 8.3 mg/dL (8.6-10.3); Magnesium 2.2 mg/dL (1.6-2.6); Potassium 3.8 mEq/L (3.5-5.1)
[2018-07-30] MEDS: Insulin LISPRO 300 UNITS/3 ML VIAL SQ SCH ×2 (08:42→11:30)
[2018-07-30] MEDS: cefTRIAXone 1,000 MG in Water for inj. (sterile) 20 ML 10 ML IVP SCH (08:49)
[2018-07-30] MEDS: Aspirin Enteric Coated 325 MG Tablet PO SCH (08:49)
[2018-07-30] MEDS: Vitamin B Complex/Vit C/Vit E 1 EACH TABLET PO SCH (08:49)
[2018-07-30] MEDS: *HR* Glimepiride 2 MG TABLET PO SCH (08:49)
[2018-07-30] MEDS: Multivit/Ca/Min/Fe/FA 1 TAB TABLET PO SCH (08:50)
[2018-07-30] MEDS: Fluticasone Propionate Nasal 50 MCG/SPRAY BOTTLE NS SCH (08:50)
[2018-07-30] MEDS ORDERED: 0.9 % Sodium Chloride 250 ML ONE (11:14)
[2018-07-30] MEDS: *HR* HYDROcodone/Acet 5/325 mg TABLET PO PRN (14:49)
[2018-07-30 15:00] VITALS: BP 163/91
--- NOTE | 2018-07-30 16:34 | Discharge Summary ---
- NOTES TO OUTPATIENT PROVIDER Notes to Outpatient Provider: Follow up CBC within a week. Follow-up with orthopedics within 2-3 weeks. Orders not resulted at time of discharge: Pending orders 07/25/18 14:00 XR hip complete LT [XR] Routine 07/30/18 16:03 Hgb/Hct [Hemoglobin and Hematocrit] [HEME] Timed Date of Encounter: 07/30/18 Time of Encounter: 16:31 - Discharge Diagnosis (1) Intertrochanteric fracture of left femur Priority: Primary Status: Acute Qualifiers: Encounter type: initial encounter Fracture type: closed Fracture alignment: displaced Qualified Code(s): S72.142A - Displaced intertrochanteric fracture of left femur, initial encounter for closed fracture (2) Hypertension Priority: Secondary Status: Chronic Qualifiers: Hypertension type: essential hypertension Qualified Code(s): I10 - Essential (primary) hypertension (3) History of CVA (cerebrovascular accident) Priority: Secondary Status: Chronic (4) Leukocytosis Priority: Secondary Status: Acute Qualifiers: Leukocytosis type: unspecified Qualified Code(s): D72.829 - Elevated white blood cell count, unspecified (5) Diabetes Priority: Secondary Status: Chronic Qualifiers: Diabetes mellitus type: type 2 Diabetes mellitus complication status: with unspecified complications Qualified Code(s): E11.8 - Type 2 diabetes mellitus with unspecified complications (6) Anemia Priority: Secondary Status: Chronic Qualifiers: Anemia type: unspecified type Qualified Code(s): D64.9 - Anemia, unspecified (7) DVT prophylaxis Priority: Secondary Status: Acute Hospital course: Ms. Peña is a 82 year old female past medical history significant for CVA in the 90s, diabetes, GERD, hypertension, hyperlipidemia. Patient states that she was walking in her living room and she TRIPPED With her recliner and fell. Reports that after following the fall, she heard a pop. In the ED patient found to have an intertrochanteric left hip fracture underwent Left hip cephalomedullary nail. During this hospitalization patient required to be transfused 1 unit of PRBCs due to drop in H&H to 7.2 but no signs of active bleeding. Patient is hemodynamically stable to be transferred to rehab. Recommended to have a CBC done within a week to f/u H&H. - Time Spent with Patient Total time spent providing and/or coordinating discharge services: Greater than 30 minutes - Discharge Medications Prescriptions: HYDROcodone/Acet 5/325 mg [[place] 5-325 mg] 1 tab PO Q6HR PRN 7 Days #20 tablet PRN Reason: Mild To Moderate Pain Carvedilol [Coreg] 6.25 mg PO BIDWM 30 Days #60 tablet Home Medications: Aspirin 81 mg PO DAILY 03/26/16 [History] Clopidogrel [Plavix] 75 mg PO DAILY 09/03/17 [History] amLODIPine [Norvasc] 10 mg PO DAILY #60 tablet 09/06/17 [Rx] Glimepiride [Amaryl] 2 mg PO DAILY 07/24/18 [History] Losartan Potassium [Cozaar] 50 mg PO DAILY 07/24/18 [History] Multivitamin [One Daily Essential] 1 tab PO DAILY 07/24/18 [History] Solifenacin Succinate [Vesicare] 10 mg PO DAILY 07/24/18 [History] Triamcinolone Acetonide [Nasacort] 1 puff NS DAILY 07/24/18 [History] Trospium Chloride 20 mg PO DAILY 07/24/18 [History] Vitamin B Complex/Folic Acid [Sm Vitamin B Complex Tablet] 0.4 mg PO DAILY 07/24 [History] raNITIdine HCl [Zantac] 150 mg PO BID 07/24/18 [History] Carvedilol [Coreg] 6.25 mg PO BIDWM 30 Days #60 tablet 07/30/18 [Rx] HYDROcodone/Acet 5/325 mg [[place] 5-325 mg] 1 tab PO Q6HR PRN 7 Days #20 tablet 07/30/18 [Rx] Allergies/Adverse Reactions: 3 Allergy/AdvReac Type Severity Reaction Status Date / Time No Known Allergies Allergy Verified 07/24/18 22:25 Date of admission: 07/25/18 09:46 Primary care physician: Amanda Headley Consults: 07/25/18 16:57 Consult to Occupational Therapy [CONS] Routine Comment: Evaluate, develop and implement POC Reason for Consult: post hip surgery Does patient have active BEDREST order?: No Is patient medically & hemodynamically stable?: Yes Consult to Orthopedic Navigator [CONS] [CONS] Routine Consult to Physical Therapy [CONS] Routine Comment: Evaluate, develop and implement POC Reason for Consult: post hip surgery Does patient have active BEDREST order?: No Is patient medically & hemodynamically stable?: Yes Consult to Panel Machine Operator [CONS] Routine Reason for SW Consult: post -op hip fracture RT Post Op Consult [CONS] Routine - Constitutional Vitals: Temp Pulse Resp BP Pulse Ox 97.8 F 96 15 163/91 97 07/30/18 14:50 07/30/18 14:50 07/30/18 14:50 07/30/18 14:50 07/30/18 11:38 Exam: General: Patient is alert, oriented x4, no acute distress. Respiratory: Clear to auscultation bilaterally, no wheezing or crackles. Cardiovascular: Normal s1 and s2 No rubs, gallops, or murmors. Abdomen: Bowel sounds present normoactive. No guarding or rebound. Musculoskeletal: No edema, no calf tenderness. Neuro: Cranial nerves 2-12 is intact. Psych: Patient's affect is normal - Patient Status Disposition: Transfer SNF Condition: Good Functional capacity at discharge: independent ambulation Overall status at discharge: patient is progressing back to baseline - Discharge Instructions Follow Up With: Amanda Headley MD [Primary Care Provider] - - Diet and Activity Activity: as per physical therapy Diet: diabetic diet - VTE Documentation of Mechanical Device: Intermittent pneumatic compression device
[2018-07-30 16:37] LABS: Hematocrit 32.4 % (35.3-44.9)
[2018-07-30 16:38] LABS: Hemoglobin 10.6 g/dL (11.5-15.4)
--- NOTE | 2018-07-30 16:41 | Physician Discharge Referral ---
ExtendedCare Referral Info Transfer To: SNF - Diagnosis (1) Intertrochanteric fracture of left femur Priority: Primary Status: Acute (2) Hypertension Priority: Secondary Status: Chronic (3) History of CVA (cerebrovascular accident) Priority: Secondary Status: Chronic (4) Leukocytosis Priority: Secondary Status: Acute (5) Diabetes Priority: Secondary Status: Chronic (6) Anemia Priority: Secondary Status: Chronic (7) DVT prophylaxis Priority: Secondary Status: Acute - Transfer Medications Prescriptions: HYDROcodone/Acet 5/325 mg [[place] 5-325 mg] 1 tab PO Q6HR PRN 7 Days #20 tablet PRN Reason: Mild To Moderate Pain Carvedilol [Coreg] 6.25 mg PO BIDWM 30 Days #60 tablet Home Medications: Aspirin 81 mg PO DAILY 03/26/16 [History] Clopidogrel [Plavix] 75 mg PO DAILY 09/03/17 [History] amLODIPine [Norvasc] 10 mg PO DAILY #60 tablet 09/06/17 [Rx] Glimepiride [Amaryl] 2 mg PO DAILY 07/24/18 [History] Losartan Potassium [Cozaar] 50 mg PO DAILY 07/24/18 [History] Multivitamin [One Daily Essential] 1 tab PO DAILY 07/24/18 [History] Solifenacin Succinate [Vesicare] 10 mg PO DAILY 07/24/18 [History] Triamcinolone Acetonide [Nasacort] 1 puff NS DAILY 07/24/18 [History] Trospium Chloride 20 mg PO DAILY 07/24/18 [History] Vitamin B Complex/Folic Acid [Sm Vitamin B Complex Tablet] 0.4 mg PO DAILY 07/24 [History] raNITIdine HCl [Zantac] 150 mg PO BID 07/24/18 [History] Carvedilol [Coreg] 6.25 mg PO BIDWM 30 Days #60 tablet 07/30/18 [Rx] HYDROcodone/Acet 5/325 mg [[place] 5-325 mg] 1 tab PO Q6HR PRN 7 Days #20 tablet 07/30/18 [Rx] Allergies/Adverse Reactions: 3 Allergy/AdvReac Type Severity Reaction Status Date / Time No Known Allergies Allergy Verified 07/24/18 22:25 - Respiratory Orders None Smoking Cessation: Smoking cessation has been advised. For more information, call the [place] Tobacco Quit Line at 9-406-JZEQ-NOW. - Advance Directives Code Status: Full Code - Mobility Orders Ambulate - Rehabiliation Orders Rehab Potential: Good - Diet Orders Regular CERTIFICATION: I certify that the transfer of the above named patient to an Extended Care Facility is necessary for the continuing treatment of the diagnosis listed. The above information is true and accurate reflection of patient's current condition. Confidential - Redisclosure prohibited without a patient's written consent.
--- NOTE | 2018-07-31 08:48 | Electrocardiograph Report ---
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
--- NOTE | 2018-08-07 16:42 | Emergency Department Note ---
Disposition Clinical Impression: Intertrochanteric fracture of left femur Qualifiers: Encounter type: initial encounter Fracture type: closed Fracture alignment: displaced Qualified Code(s): S72.142A - Displaced intertrochanteric fracture of left femur, initial encounter for closed fracture Disposition: Admitted As Inpatient Condition: Fair General Adult HPI - General Chief complaint: ED Fall Stated complaint: fall Time Seen by Provider: 07/24/18 20:16 Source: patient, EMS Mode of arrival: EMS Limitations: no limitations - History of Present Illness Pain Scale: 5 - Related Data Home Medications Medication Instructions Recorded Confirmed Aspirin 81 mg PO DAILY 03/26/16 07/24/18 Clopidogrel [Plavix] 75 mg PO DAILY 09/03/17 07/24/18 Glimepiride [Amaryl] 2 mg PO DAILY 07/24/18 07/24/18 Losartan Potassium [Cozaar] 50 mg PO DAILY 07/24/18 07/24/18 Multivitamin [One Daily Essential] 1 tab PO DAILY 07/24/18 07/24/18 Solifenacin Succinate [Vesicare] 10 mg PO DAILY 07/24/18 07/24/18 Triamcinolone Acetonide [Nasacort] 1 puff NS DAILY 07/24/18 07/24/18 Trospium Chloride 20 mg PO DAILY 07/24/18 07/24/18 Vitamin B Complex/Folic Acid [Sm 0.4 mg PO DAILY 07/24/18 07/24/18 Vitamin B Complex Tablet] raNITIdine HCl [Zantac] 150 mg PO BID 07/24/18 07/24/18 Previous Rx's Medication Instructions Recorded amLODIPine [Norvasc] 10 mg PO DAILY #60 tablet 09/06/17 Carvedilol [Coreg] 6.25 mg PO BIDWM 30 Days #60 tablet 07/30/18 HYDROcodone/Acet 5/325 mg [[place] 1 tab PO Q6HR PRN 7 Days #20 tablet 07/30/18 5-325 mg] Allergies Allergy/AdvReac Type Severity Reaction Status Date / Time No Known Allergies Allergy Verified 07/24/18 22:25 Musculoskeletal: Reports: arthralgia Past Medical History - Past Medical History Medical history: Reports: CVA, diabetes, GERD, hyperlipidemia, hypertension Surgical history: Reports: appendectomy, cholecystectomy, hysterectomy Psychiatric history: Reports: no psych history - Social History Smoking Status: Former smoker Smokeless Tobacco Status: No Alcohol use: Reports: rarely Drug use: Reports: none Physical Exam - General Limitations: no limitations General appearance: alert Course Vital Signs Temperature 98.2 F 07/24/18 20:15 Pulse Rate 114 07/24/18 20:15 Respiratory Rate 22 07/24/18 20:15 Blood Pressure 91/73 07/24/18 20:15 O2 Sat by Pulse Oximetry 95 07/24/18 20:15 Temperature 97.8 F 07/30/18 14:50 Pulse Rate 96 07/30/18 14:50 Respiratory Rate 15 07/30/18 14:50 Blood Pressure 163/91 07/30/18 14:50 O2 Sat by Pulse Oximetry 97 07/30/18 11:38 Oxygen Delivery Oxygen Delivery Room Air Medical Decision Making - Lab Data Result diagrams: 07/30/18 16:03 07/30/18 00:43 Lab Results 07/24/18 07/24/18 07/24/18 Range/Units 23:22 23:22 23:22 WBC 19.7 H (4.3-11.1) K/mcL RBC 4.21 (3.82-4.97) M/mcL Hgb 13.1 (11.5-15.4) g/dL Hct 39.5 (35.3-44.9) % MCV 93.8 (83.0-100.0) fL MCH 31.1 (28.0-33.3) pg MCHC 33.2 (31.6-35.5) g/dL RDW 12.7 (11.5-14.5) % Plt Count 304 (140-400) K/mcL MPV 9.9 (9.4-12.4) fL Immature Gran % 0.5 (0-4) % Seg Neutrophils % 88.7 % Lymphocytes % 6.4 % Monocytes % 3.9 % Eosinophils % 0.1 % Basophils % 0.4 % Neutrophils # 17.5 H (1.6-8.9) K/mcL Lymphocytes # 1.3 (0.6-4.6) K/mcL Monocytes # 0.8 (0.0-1.3) K/mcL Eosinophils # 0.0 (0.0-0.6) K/mcL Basophils # 0.1 (0.0-0.2) K/mcL PT 11.0 (9.4-12.1) Seconds INR 1.0 APTT 26.8 (26.0-36.0) Seconds Sodium 137 (136-145) mEq/L Potassium 3.6 (3.5-5.1) mEq/L Chloride 104 (98-107) mEq/L Carbon Dioxide 24 (23-29) mEq/L BUN 21 (8-23) mg/dL Creatinine 1.05 (0.60-1.20) mg/dL Est GFR ( Amer) > 60 (> 60) Est GFR (Non-Af Amer) 50 L (> 60) BUN/Creatinine Ratio 20 (6-26) Glucose 236 H (70-105) mg/dL Calculated Osmolality 295 (280-300) Calcium 9.2 (8.6-10.3) mg/dL Total Bilirubin (0.3-1.0) mg/dL AST (13-39) Units/L ALT (7-52) Units/L Alkaline Phosphatase (34-104) Units/L Serum Total Protein (6.4-8.9) g/dL Albumin (3.5-5.7) g/dL Globulin (2.4-3.5) g/dL Albumin/Globulin Ratio (1.1-2.2) 07/25/18 07/25/18 Range/Units 05:47 05:47 WBC 19.3 H (4.3-11.1) K/mcL RBC 4.10 (3.82-4.97) M/mcL Hgb 12.8 (11.5-15.4) g/dL Hct 37.5 (35.3-44.9) % MCV 91.5 (83.0-100.0) fL MCH 31.2 (28.0-33.3) pg MCHC 34.1 (31.6-35.5) g/dL RDW 12.7 (11.5-14.5) % Plt Count 303 (140-400) K/mcL MPV 9.9 (9.4-12.4) fL Immature Gran % 0.6 (0-4) % Seg Neutrophils % 91.4 % Lymphocytes % 4.8 % Monocytes % 2.9 % Eosinophils % 0.0 % Basophils % 0.3 % Neutrophils # 17.6 H (1.6-8.9) K/mcL Lymphocytes # 0.9 (0.6-4.6) K/mcL Monocytes # 0.6 (0.0-1.3) K/mcL Eosinophils # 0.0 (0.0-0.6) K/mcL Basophils # 0.1 (0.0-0.2) K/mcL PT (9.4-12.1) Seconds INR APTT (26.0-36.0) Seconds Sodium 137 (136-145) mEq/L Potassium 3.9 (3.5-5.1) mEq/L Chloride 102 (98-107) mEq/L Carbon Dioxide 27 (23-29) mEq/L BUN 19 (8-23) mg/dL Creatinine 0.92 (0.60-1.20) mg/dL Est GFR ( Amer) > 60 (> 60) Est GFR (Non-Af Amer) 58 L (> 60) BUN/Creatinine Ratio 21 (6-26) Glucose 249 H (70-105) mg/dL Calculated Osmolality 295 (280-300) Calcium 9.3 (8.6-10.3) mg/dL Total Bilirubin 0.5 (0.3-1.0) mg/dL AST 19 (13-39) Units/L ALT 17 (7-52) Units/L Alkaline Phosphatase 90 (34-104) Units/L Serum Total Protein 7.3 (6.4-8.9) g/dL Albumin 4.2 (3.5-5.7) g/dL Globulin 3.1 (2.4-3.5) g/dL Albumin/Globulin Ratio 1.4 (1.1-2.2) Attestation Statement - Attestation Attestation: I examined this patient and my medical decision-making was reviewed with the Resident Physician. I agree with the documented findings, disposition and treatment plan as described except to the extent set forth below. Dr. Navarro discussed US-guided femoral nerve block with ortho, they were OK with procedure being done, but when we went to discuss w the pt she had already been brought to the floor.
== END 2018-07-30 19:22 | DRG 481 ==
LOC: 3NENU 20:10 → EMEROOARM 20:10 → 3NENU 22:59 → SUATTDRO 07-25 09:46
PROVIDERS: ADMIT Pediatrics; ATTEND Internal Medicine